=== PATIENT | male | born 1950 | race Caucasian/White ===

== ENCOUNTER → 2016-12-16 | Outpatient (CLI) | payer OTHER ==
[~2016-12-16] MED LIST: ASPI81TA28 PO; GABA-113 PO; HYDR25TA5 PO; LISI-725 PO; PANT1TAB48 PO; POTA20TA16 PO
[2016-12-16 12:56] LABS: BASO % 0.6 %; BASO ABS # 0.05 K/uL (0-0.2); COMPLETE YES; EOS % 2.4 %; IG% 0.1 %; LYMPH % 21.5 %; LYMPH ABS # 1.73 K/uL (1.2-3.4); MEAN CELL VOLUME 94.4 fL (80-100); MEAN CORPUSCULAR HEMOGLOBIN 33.2 pg (25-34); MEAN CORPUSCULAR HGB CONC 35.1 g/dl (32-36); MEAN PLATELET VOLUME 11.6 fL (7.4-10.4); MONO % 5.5 %; NEUT % 69.9 %; PLATELET COUNT 205 K/uL (130-400); RED BLOOD COUNT 4.13 M/uL (4.7-6.1); WHITE BLOOD COUNT 8.06 K/uL (4.8-10.8)
[2016-12-16 13:05] LABS: BLOOD UREA NITROGEN 12 mg/dl (7-18); BUN/CREATININE RATIO 12.6 (10-20); CALCIUM 8.8 mg/dl (8.5-10.1); CARBON DIOXIDE 28 mmol/L (21-32); CHLORIDE 105 mmol/L (98-107); CREATININE 0.91 mg/dl (0.60-1.40); GLUCOSE 90 mg/dl (70-99); POTASSIUM 3.6 mmol/L (3.5-5.1); SODIUM 140 mmol/L (136-145)
[2016-12-16 13:10] LABS: URINE APPEARANCE CLEAR (CLEAR); URINE BILIRUBIN NEG (NEG); URINE COLOR YELLOW; URINE EPITHELIAL CELL AUTO 0-5 /lpf (0-5); URINE NITRITE NEG (NEG); URINE SPECIFIC GRAVITY 1.002 (1.000-1.030); UROBILINOGEN NEG (NEG); ZZUR CULT IF INDIC CLEAN CATCH NO
[2016-12-16 13:10] LABS: PROSTATE SPECIFIC ANTIGEN 0.863 ng/ml (0.000-4.000)
[2016-12-16 13:31] LABS: MANUAL MICROSCOPIC REQUIRED? NO; REVIEW REQ? NO
== END | disposition home or self-care (01) ==
LOC: C.LABBFT 10:04
PROVIDERS: ATTEND Internal Medicine
DX: Z00.00 Encounter for general adult medical examination without abnormal findings (principal); I10 Essential (primary) hypertension; E87.6 Hypokalemia; R10.2 Pelvic and perineal pain; D72.829 Elevated white blood cell count, unspecified; R31.9 Hematuria, unspecified

== ENCOUNTER → 2017-03-01 | Outpatient (CLI) | payer OTHER | LOC: C.LAB 20:13 | DX: Z02.83 Encounter for blood-alcohol and blood-drug test (principal) ==

== ENCOUNTER 2019-06-08 13:40 | Inpatient (IN) ==
[2019-06-08] MEDS ORDERED: ASPIRIN CHEW 324 MG PO STA (14:06)
[2019-06-08] MEDS ORDERED: SODIUM CHLORIDE 0.9% 500 ML IV SCH (14:15)
[2019-06-08 14:31] LABS: Basophils # (auto) 0.02 K/uL (0-0.2); Basophils % (auto) 0.2 %; Hematocrit (blood only) 41.4 % (42-52); Hemoglobin 14.4 g/dL (14.0-18.0); Immature Granulocytes # (auto) 0.03 K/uL (0.00-0.02); Immature Granulocytes % (auto) 0.3 %; Lymphocytes # (auto) 1.21 K/uL (1.2-3.4); Lymphocytes % (auto) 11.6 %; Mean Corpuscular Hgb Conc 34.8 g/dL (32-36); Mean Corpuscular Volume 92.2 fL (80-100); Mean Platelet Volume 11.4 fL (7.4-10.4); Monocytes # (auto) 0.51 K/uL (0.11-0.59); Monocytes % (auto) 4.9 %; Neutrophils # (auto) 8.57 K/uL (1.4-6.5); Platelet Count 181 K/uL (130-400); RDW Coefficient of Variation 13.7 % (11.5-14.5); Red Blood Count 4.49 M/uL (4.7-6.1); White Blood Count 10.44 K/uL (4.8-10.8)
[2019-06-08 14:32] LABS: Albumin Level 3.9 gm/dl (3.4-5.0); BUN Creatinine Ratio 11.8 (10-20); Blood Urea Nitrogen 14 mg/dl (7-18); Calcium 9.3 mg/dl (8.5-10.1); Carbon Dioxide 29 mmol/L (21-32); Chloride 103 mmol/L (98-107); Creatinine Clr Calc Pharmacy 61.9 ml/min; Est GFR (African American) 70.9; Est GFR (Non-African American) 61.1; Glucose 111 mg/dl (70-99); Magnesium 1.8 mg/dl (1.8-2.4); Potassium 3.7 mmol/L (3.5-5.1); Sodium 137 mmol/L (136-145)
[2019-06-08 14:37] LABS: Alanine Aminotransferase 21 U/L (12-78); Albumin Globulin Ratio 1.1 (0.9-2); Alkaline Phosphatase 34 U/L (45-117); Aspartate Aminotransferase 13 U/L (15-37); Bilirubin,Total 0.6 mg/dl (0.2-1); Globulin 3.5 gm/dl (2.5-4.0); Total Protein 7.4 gm/dl (6.4-8.2); Troponin I < 0.015 ng/ml (0-0.045)
[2019-06-08 14:38] LABS: Partial Thromboplastin Ratio 0.9; Partial Thromboplastin Time 24.5 Seconds (21.0-31.0); Prothrombin Time 10.5 Seconds (9.0-12.0)
--- NOTE | 2019-06-08 15:06 | XRay Report ---
XR chest 1V portable HISTORY: Atypical Chest Pain COMPARISON: Chest 03/05/2019. FINDINGS: The lungs are clear. Cardiac silhouette is normal in size. No pleural effusions. No pneumot horax. IMPRESSION: No acute process. Electronically signed by: Deny Weaver M.D. 06/08/2019 3:04 PM
--- NOTE | 2019-06-08 15:14 | Emergency Department Note ---
Entered by Marlene Barney acting as a scribe for Juanito Sims MD History of Present Illness General Chief complaint: Chest Pain Stated complaint: CHEST PAIN, SWEATS, LEGS HURTING Time Seen by Provider: 06/08/19 13:59 Source: patient History of Present Illness Provider complaint: Chest pain Onset (ago): hour(s) Location: chest Pain Consistency: + constant Maximum Pain Intensity: 8 Quality: + constant Associated symptoms: + chest pain, + diaphoresis, + weakness (in both legs) and + other (Positive: left arm pain); no shortness of breath The patient is a 69 year old male who presents to the ED with complaints of constant chest pain that stared a few hours ago and lasted for 30 minutes. The patient reports he was mowing the grass and started having chest pain. He notes he was driving the mower and was not exerting himself. The patient reports he had diaphoresis and felt like he was going to vomit. He states both his legs were weak and he had pain in his left arm. The patient reports he does not have a history of heart disease but his family does. He states he is a smoker. The patient denies shortness of breath. Home Medications Home Medications Medication Instructions Recorded Confirmed Type aspirin 81 mg PO QAM 03/05/19 06/08/19 History gabapentin 300 mg capsule 300 mg PO HS #30 cap 05/27/19 06/08/19 Rx hydrochlorothiazide 25 mg tablet 25 mg PO DAILY #90 tab 05/30/19 06/08/19 Rx lisinopril 20 mg tablet 20 mg PO DAILY #90 tab 05/30/19 06/08/19 Rx pantoprazole 40 mg tablet,delayed 40 mg PO DAILY #90 tab 05/30/19 06/08/19 Rx release potassium chloride ER 20 mEq 20 meq PO DAILY #90 tab 05/30/19 06/08/19 Rx tablet,extended release Allergies Allergy/AdvReac Type Severity Reaction Status Date / Time No Known Allergies Allergy Verified 06/08/19 15:12 Past Med/Surg History Medical History Asthma (Chronic) GERD (gastroesophageal reflux disease) (Chronic) HTN (hypertension) (Chronic) Family History Brother Myocardial infarction Other Heart disease Social History Preferred Language: Peruvian Communication Ability: Effective Beliefs That Will Affect Care: None Current Living Situation: Alone Other Information That Helps Us Care for You: No Feels Safe at Home: Yes Safety Concerns: Feels Safe At This Time Smoking Status: Current every day smoker Tobacco Type: cigarettes Cigarettes Per Day: 20 Hx Alcohol Use: No Hx Substance Use: No Review of Systems See HPI for pertinent positives & negatives. and A total of 10 systems reviewed and were otherwise negative Physical Exam Vital Signs Vital Signs - 24 hr 06/08/19 13:44 06/08/19 13:52 06/08/19 13:54 Temperature 36.3 C L Temperature Source Oral Sepsis Recent Fever Within 48 Hours No Sepsis New/Unexplained Change in Mental Status No Sepsis Action Taken by Nursing No Action Required Pulse Rate 87 73 72 Pulse Rate [Apical] Pulse Rate from SpO2 Sensor 73 74 Respiratory Rate 20 20 19 Respiratory Effort / Characteristics Non-Labored Spontaneous Blood Pressure 122/80 117/75 Blood Pressure [Left Arm] Blood Pressure Mean 94 89 Blood Pressure Mean [Left Arm] Blood Pressure Position Sitting Pulse Oximetry 97 97 95 Oxygen Delivery Method Room Air 06/08/19 14:00 06/08/19 14:09 06/08/19 14:10 Temperature Temperature Source Sepsis Recent Fever Within 48 Hours Sepsis New/Unexplained Change in Mental Status Sepsis Action Taken by Nursing Pulse Rate 72 79 Pulse Rate [Apical] Pulse Rate from SpO2 Sensor 77 Respiratory Rate 18 24 Respiratory Effort / Characteristics Blood Pressure Blood Pressure [Left Arm] Blood Pressure Mean Blood Pressure Mean [Left Arm] Blood Pressure Position Pulse Oximetry 96 97 Oxygen Delivery Method 06/08/19 14:14 06/08/19 14:15 06/08/19 14:20 Temperature Temperature Source Sepsis Recent Fever Within 48 Hours Sepsis New/Unexplained Change in Mental Status Sepsis Action Taken by Nursing Pulse Rate 74 81 Pulse Rate [Apical] 78 Pulse Rate from SpO2 Sensor 75 79 Respiratory Rate 16 18 23 Respiratory Effort / Characteristics Blood Pressure 125/81 Blood Pressure [Left Arm] 125/81 Blood Pressure Mean 95 Blood Pressure Mean [Left Arm] 95 Blood Pressure Position Pulse Oximetry 98 97 97 Oxygen Delivery Method Room Air 06/08/19 14:30 06/08/19 14:40 06/08/19 14:50 Temperature Temperature Source Sepsis Recent Fever Within 48 Hours Sepsis New/Unexplained Change in Mental Status Sepsis Action Taken by Nursing Pulse Rate 73 72 67 Pulse Rate [Apical] Pulse Rate from SpO2 Sensor 75 71 68 Respiratory Rate 20 17 18 Respiratory Effort / Characteristics Blood Pressure 129/79 Blood Pressure [Left Arm] Blood Pressure Mean 95 Blood Pressure Mean [Left Arm] Blood Pressure Position Pulse Oximetry 98 98 95 Oxygen Delivery Method 06/08/19 15:00 06/08/19 15:10 06/08/19 15:20 Temperature Temperature Source Sepsis Recent Fever Within 48 Hours Sepsis New/Unexplained Change in Mental Status Sepsis Action Taken by Nursing Pulse Rate 69 71 73 Pulse Rate [Apical] 71 Pulse Rate from SpO2 Sensor 69 71 77 Respiratory Rate 24 21 18 Respiratory Effort / Characteristics Blood Pressure 146/83 H Blood Pressure [Left Arm] 146/83 H Blood Pressure Mean 104 Blood Pressure Mean [Left Arm] 104 Blood Pressure Position Pulse Oximetry 99 97 99 Oxygen Delivery Method Room Air 06/08/19 15:28 06/08/19 15:30 06/08/19 15:40 Temperature Temperature Source Sepsis Recent Fever Within 48 Hours Sepsis New/Unexplained Change in Mental Status Sepsis Action Taken by Nursing Pulse Rate 67 64 Pulse Rate [Apical] Pulse Rate from SpO2 Sensor 68 Respiratory Rate 14 14 Respiratory Effort / Characteristics Blood Pressure 139/84 Blood Pressure [Left Arm] Blood Pressure Mean 102 Blood Pressure Mean [Left Arm] Blood Pressure Position Pulse Oximetry 99 Oxygen Delivery Method Room Air 06/08/19 15:50 06/08/19 16:00 06/08/19 16:10 Temperature Temperature Source Sepsis Recent Fever Within 48 Hours Sepsis New/Unexplained Change in Mental Status Sepsis Action Taken by Nursing Pulse Rate 64 66 70 Pulse Rate [Apical] Pulse Rate from SpO2 Sensor Respiratory Rate 13 19 23 Respiratory Effort / Characteristics Blood Pressure 145/86 H Blood Pressure [Left Arm] Blood Pressure Mean 105 Blood Pressure Mean [Left Arm] Blood Pressure Position Pulse Oximetry Oxygen Delivery Method 06/08/19 16:20 06/08/19 16:30 Temperature Temperature Source Sepsis Recent Fever Within 48 Hours Sepsis New/Unexplained Change in Mental Status Sepsis Action Taken by Nursing Pulse Rate 72 68 Pulse Rate [Apical] Pulse Rate from SpO2 Sensor Respiratory Rate 15 15 Respiratory Effort / Characteristics Blood Pressure 129/90 Blood Pressure [Left Arm] Blood Pressure Mean 103 Blood Pressure Mean [Left Arm] Blood Pressure Position Pulse Oximetry Oxygen Delivery Method GENERAL: Patient is in no acute distress. HEENT: No acute trauma, normocephalic atraumatic, mucous membranes moist, no nasal congestion, no scleral icterus. Chest: Nontender chest wall NECK: No stridor, no adenopathy, no meningismus, trachea is midline. LUNGS: Clear to auscultation bilaterally, no wheeze, no rhonchi, breath sounds equal. HEART: Without murmurs gallops or rubs, regular rate and rhythm. ABDOMEN: Soft, nontender, bowel sounds positive, no hernias, no peritonitis. EXTREMITIES: No cyanosis or edema, full range of motion of all the joints without pain or difficulty, no signs for acute trauma. NEUROLOGIC: Oriented x 3, no acute motor or sensory deficits, no focal weakness. SKIN: No rash, no jaundice, no diaphoresis. Course 1400: The patient was evaluated in room B3B. A complete history and physical exam was performed. 1458: I discussed the patient's case with Dr. Fernandez, [facility] Hospitalist. He will evaluate the patient for further management. 1503: Upon reevaluation, the patient is resting comfortably. I discussed laboratory and radiographic results with him. The patient verbalized agreement of the treatment plan. The patient will be evaluated for further management and care. Administered Medications Discontinued Medications Aspirin (Aspirin) 324 mg PO NOW STA Stop: 06/08/19 14:07 Last Admin: 06/08/19 14:12 Dose: 324 mg Documented by: [id number] Sodium Chloride (Nss) 500 mls @ 999 mls/hr IV .Q31M JESSE Stop: 06/08/19 14:45 Last Infusion: 06/08/19 14:55 Dose: 0 mls/hr Documented by: [id number] Admin: 06/08/19 14:12 Dose: 999 mls/hr Documented by: [id number] Medical Decision Making Differential Diagnosis Differential Diagnosis: LA, angina, musculoskeletal pain, PE, aortic dissection, anemia pneumonia, near syncope Medical Records Attestation: I reviewed the patient's medical records. Home Medications Current Medication List: was personally reviewed by me Laboratory Data Attestation: I reviewed the patient's lab results. Result diagrams: 06/08/19 14:03 06/08/19 14:03 Lab Results 06/08/19 06/08/19 06/08/19 Range/Units 14:03 14:03 14:03 WBC 10.44 (4.8-10.8) K/uL RBC 4.49 L (4.7-6.1) M/uL Hgb 14.4 (14.0-18.0) g/dL Hct 41.4 L (42-52) % MCV 92.2 (80-100) fL MCH 32.1 (25-34) pg MCHC 34.8 (32-36) g/dL RDW Std Deviation 46.0 (36.4-46.3) fL RDW Coeff of Sancho 13.7 (11.5-14.5) % Plt Count 181 (130-400) K/uL MPV 11.4 H (7.4-10.4) fL Immature Gran % (Auto) 0.3 % Neut % (Auto) 82.0 % Lymph % (Auto) 11.6 % Ceiba % (Auto) 4.9 % Eos % (Auto) 1.0 % Baso % (Auto) 0.2 % Immature Gran # (Auto) 0.03 H (0.00-0.02) K/uL Neut # (Auto) 8.57 H (1.4-6.5) K/uL Lymph # (Auto) 1.21 (1.2-3.4) K/uL Ceiba # (Auto) 0.51 (0.11-0.59) K/uL Eos # (Auto) 0.10 (0-0.5) K/uL Baso # (Auto) 0.02 (0-0.2) K/uL PT 10.5 (9.0-12.0) Seconds INR 1.0 (0.9-1.1) APTT 24.5 (21.0-31.0) Seconds PTT Ratio 0.9 Sodium 137 (136-145) mmol/L Potassium 3.7 (3.5-5.1) mmol/L Chloride 103 (98-107) mmol/L Carbon Dioxide 29 (21-32) mmol/L Anion Gap 5.0 (3-11) BUN 14 (7-18) mg/dl Creatinine 1.21 (0.6-1.4) mg/dl Est Cr Clr Drug Dosing 61.9 ml/min Est GFR ( Amer) 70.9 Est GFR (Non-Af Amer) 61.1 BUN/Creatinine Ratio 11.8 (10-20) Glucose 111 H (70-99) mg/dl Calcium 9.3 (8.5-10.1) mg/dl Magnesium 1.8 (1.8-2.4) mg/dl Total Bilirubin 0.6 (0.2-1) mg/dl AST 13 L (15-37) U/L ALT 21 (12-78) U/L Alkaline Phosphatase 34 L (45-117) U/L Troponin I < 0.015 (0-0.045) ng/ml Total Protein 7.4 (6.4-8.2) gm/dl Albumin 3.9 (3.4-5.0) gm/dl Globulin 3.5 (2.5-4.0) gm/dl Albumin/Globulin Ratio 1.1 (0.9-2) Lipase 144 (73-393) U/L / Range/Units 14:03 WBC (4.8-10.8) K/uL RBC (4.7-6.1) M/uL Hgb (14.0-18.0) g/dL Hct (42-52) % MCV (80-100) fL MCH (25-34) pg MCHC (32-36) g/dL RDW Std Deviation (36.4-46.3) fL RDW Coeff of Sancho (11.5-14.5) % Plt Count (130-400) K/uL MPV (7.4-10.4) fL Immature Gran % (Auto) % Neut % (Auto) % Lymph % (Auto) % Ceiba % (Auto) % Eos % (Auto) % Baso % (Auto) % Immature Gran # (Auto) (0.00-0.02) K/uL Neut # (Auto) (1.4-6.5) K/uL Lymph # (Auto) (1.2-3.4) K/uL Ceiba # (Auto) (0.11-0.59) K/uL Eos # (Auto) (0-0.5) K/uL Baso # (Auto) (0-0.2) K/uL PT (9.0-12.0) Seconds INR (0.9-1.1) APTT (21.0-31.0) Seconds PTT Ratio Sodium (136-145) mmol/L Potassium (3.5-5.1) mmol/L Chloride (98-107) mmol/L Carbon Dioxide (21-32) mmol/L Anion Gap (3-11) BUN (7-18) mg/dl Creatinine (0.6-1.4) mg/dl Est Cr Clr Drug Dosing ml/min Est GFR ( Amer) Est GFR (Non-Af Amer) BUN/Creatinine Ratio (10-20) Glucose (70-99) mg/dl Calcium (8.5-10.1) mg/dl Magnesium Cancelled (1.8-2.4) mg/dl Total Bilirubin (0.2-1) mg/dl AST (15-37) U/L ALT (12-78) U/L Alkaline Phosphatase (45-117) U/L Troponin I (0-0.045) ng/ml Total Protein (6.4-8.2) gm/dl Albumin (3.4-5.0) gm/dl Globulin (2.5-4.0) gm/dl Albumin/Globulin Ratio (0.9-2) Lipase (73-393) U/L Imaging Data Radiologist's Impression: Radiology results as stated below per my review and the radiologist's interpretation: XR chest 1V portable HISTORY: Atypical Chest Pain COMPARISON: Chest 03/05/2019. FINDINGS: The lungs are clear. Cardiac silhouette is normal in size. No pleural effusions. No pneumothorax. IMPRESSION: No acute process. Electronically signed by: Deny Weaver M.D. 06/08/2019 3:04 PM ECG Data Attestation: I personally reviewed and interpreted this ECG as follows: Indication: chest pain Rate (beats per minute): 72 Rhythm: normal sinus Findings: no PVC and no ST elevation Blood Pressure Blood Pressure Findings: Normal blood pressure Blood Pressure Disposition: did not require urgent referral MDM Narrative There is no leukocytosis or concerning anemia. No coagulopathy. No significant electrolyte abnormality or kidney failure. No concerning liver enzyme elevation. The lipase is normal. EKG shows a normal sinus rhythm, no acute ischemia. Cardiac enzyme testing x1 is not consistent with acute cardiac injury. Chest film does not show mediastinal widening, pneumonia or pneumothorax. The patient was given oral aspirin, he received IV saline. Patient presents with chest pain which has now resolved. He does have cardiac risk factors. I do think further work-up in the hospital is warranted. I did speak to the patient and case management. The on-call hospitalist was consulted. Impression & Plan Precordial chest pain, Near syncope, Diaphoresis Discharge Plan Visit Data *Final* Discharge Date/Time: 06/08/19 17:08 Chief Complaint: Chest Pain Stated Complaint: CHEST PAIN, SWEATS, LEGS HURTING ED Provider: Juanito Sims Discharge Problem: Precordial chest pain, Near syncope, Diaphoresis Patient Disposition: Admitted As Inpatient Discharge Instructions Interventions: ED Discharge Assessment Last Done: 06/08/19 17:08 The scribe's documentation has been prepared under my direction and personally reviewed by me in its entirety. I confirm that the note above accurately reflects all work, treatment, procedures, and medical decision making performed by me.
--- NOTE | 2019-06-08 17:49 | History & Physical Report ---
Date of Service June 08, 2019 Assessment & Plan (1) Precordial chest pain: Fairly convincing story for chest pain, though initial troponin and EKGs are normal. Heart score is 4 (story, age, risk factors), making him moderate risk. 12-14% risk of MACE in 30 days. Patient prefers to stay for inpatient stress test. - Trend troponins & EKGs - Stress planned for Monday (2) HTN (hypertension): BP presently 130/80. - Continue home meds (3) GERD (gastroesophageal reflux disease): - Continue PPI. (4) DVT prophylaxis: SCDs - Low DVT risk per admission calculator History of Present Illness Primary Care Provider: Hailey Miranda MD 69-year-old male with history of hypertension and smoking who presents with chest pain. Patient reports that he was mowing his lawn today, got of his lawnmower, went to the house, drank a cup of water, and return to the warmer when he had a sudden onset squeezing chest pain across his shoulders. He denies any radiation to his left or right arm or jaw. Reports he he felt diaphoretic, lightheaded, and mildly nauseated with the pain. The pain self resolved after a few minutes. He reports that this occurred back in February with a very similar presentation. At that time he was ruled out for an acute LA, but never followed up with his primary care doctor to get a stress test. At this time he is chest pain-free. Allergies Allergy/AdvReac Type Severity Reaction Status Date / Time No Known Allergies Allergy Verified 06/08/19 15:12 Home Medications Home Medications Medication Instructions Recorded Confirmed Type aspirin 81 mg PO QAM 03/05/19 06/08/19 History gabapentin 300 mg capsule 300 mg PO HS #30 cap 05/27/19 06/08/19 Rx hydrochlorothiazide 25 mg tablet 25 mg PO DAILY #90 tab 05/30/19 06/08/19 Rx lisinopril 20 mg tablet 20 mg PO DAILY #90 tab 05/30/19 06/08/19 Rx pantoprazole 40 mg tablet,delayed 40 mg PO DAILY #90 tab 05/30/19 06/08/19 Rx release potassium chloride ER 20 mEq 20 meq PO DAILY #90 tab 05/30/19 06/08/19 Rx tablet,extended release Past Med/Surg History Medical History Asthma (Chronic) GERD (gastroesophageal reflux disease) (Chronic) HTN (hypertension) (Chronic) Family History Brother Myocardial infarction Other Heart disease Social History Preferred Language: Trinidadian Communication Ability: Effective Beliefs That Will Affect Care: None Current Living Situation: Alone Other Information That Helps Us Care for You: No Feels Safe at Home: Yes Safety Concerns: Feels Safe At This Time Smoking Status: Current every day smoker Tobacco Type: cigarettes Cigarettes Per Day: 20 Hx Alcohol Use: No Hx Substance Use: No Review of Systems Constitutional: no fever, no chills and no sweats Eyes: no diplopia Ear, Nose, Mouth, Throat: no ear trauma, no nasal discharge and no dental pain Respiratory: no cough, no chest congestion and no dyspnea Cardiovascular: no chest pain, no dyspnea on exertion, no palpitations and no syncope Gastrointestinal: no abdominal pain, no belching, no constipation, no diarrhea/loose stools, no blood in stools and no melena Musculoskeletal: no back pain, no joint pain and no muscle weakness Integumentary: no rash, no skin ulcer and no erythema Neurologic: no generalized weakness, no loss of sensation, no numbness and no paresthesia Psychiatric: no depression and no anxiety Endocrine: no fatigue, no polydipsia and no polyphagia Physical Exam Constitutional: WD/WN, vitals as above Eyes: EOM intact bilaterally; no conjunctival abnormality ENMT: external ear and nose normal, oropharynx normal Neck: trachea midline, no thyromegaly normal visual inspection Respiratory: normal respiratory effort, lungs clear to auscultation no respiratory distress Cardiovascular: RRR, no murmur, no edema Gastrointestinal (Abdomen): Inspection/Auscultation: abdomen normal to inspection; abdomen not distended Musculoskeletal: no cyanosis or clubbing, extremities motor strength 5/5 Skin: no rashes, warm and dry Neurologic: moves all extremities and awake Psychiatric: Orientation: alert, oriented to person and cooperative Results & Data Vital Signs (Past 12 Hours) Vital Signs Temp Pulse Pulse Resp BP BP Pulse Ox 06/08/19 17:08 68 18 129/77 94 06/08/19 16:30 68 15 129/90 06/08/19 16:20 72 15 06/08/19 16:10 70 23 06/08/19 16:00 66 19 145/86 H 06/08/19 15:50 64 13 06/08/19 15:40 64 14 06/08/19 15:30 67 14 139/84 99 06/08/19 15:20 73 18 99 06/08/19 15:10 71 21 97 06/08/19 15:00 69 71 24 146/83 H 146/83 H 99 06/08/19 14:50 67 18 95 06/08/19 14:40 72 17 98 06/08/19 14:30 73 20 129/79 98 06/08/19 14:20 81 23 97 06/08/19 14:15 78 18 125/81 97 06/08/19 14:14 74 16 125/81 98 06/08/19 14:10 79 24 97 06/08/19 14:09 96 06/08/19 14:00 72 18 06/08/19 13:54 72 19 95 06/08/19 13:52 73 20 117/75 97 06/08/19 13:44 36.3 C L 87 20 122/80 97 PG Care Time/CCT Total # of Minutes Spent Total Time Spent with Patient: Total time spent is greater than 50% in coordination of care (as documented) at patient's floor/unit and/or counseling patient:
[2019-06-08] MEDS ORDERED: ACETAMINOPHEN 325 MG TAB PO PRN (17:57)
[2019-06-08] MEDS ORDERED: GABAPENTIN 300 MG CAP PO ONE (19:00)
[2019-06-08] MEDS: NICOTINE 21 MG/24 HR TDSY TD SCH (19:39)
[2019-06-08] MEDS ORDERED: GABAPENTIN 300 MG CAP PO SCH (21:00)
[2019-06-09 07:44] LABS: Hemoglobin 14.3 g/dL (14.0-18.0); Mean Corpuscular Hgb Conc 34.9 g/dL (32-36); Mean Corpuscular Volume 92.8 fL (80-100); Mean Platelet Volume 11.6 fL (7.4-10.4); Platelet Count 177 K/uL (130-400); RDW Coefficient of Variation 13.6 % (11.5-14.5); RDW Standard Deviation 46.4 fL (36.4-46.3); Red Blood Count 4.42 M/uL (4.7-6.1); White Blood Count 7.79 K/uL (4.8-10.8)
[2019-06-09] MEDS: NICOTINE 21 MG/24 HR TDSY TD SCH (07:56)
[2019-06-09] MEDS: PANTOprazole 40 MG TAB PO SCH (07:57)
[2019-06-09] MEDS: hydroCHLOROthiazide 25 MG TAB PO SCH (07:57)
[2019-06-09] MEDS: LISINOPRIL 20 MG TAB PO SCH (07:57)
[2019-06-09] MEDS: ASPIRIN 81 MG ECTAB PO SCH (07:57)
[2019-06-09] MEDS: POTASSIUM CHLORIDE 20 MEQ TABCR PO SCH (07:58)
[2019-06-09 08:19] LABS: BUN Creatinine Ratio 14.6 (10-20); Blood Urea Nitrogen 15 mg/dl (7-18); Carbon Dioxide 28 mmol/L (21-32); Chloride 106 mmol/L (98-107); Creatinine Clr Calc Pharmacy 72.2 ml/min; Est GFR (African American) 88.2; Est GFR (Non-African American) 76.1; Glucose 97 mg/dl (70-99); Potassium 3.5 mmol/L (3.5-5.1); Sodium 139 mmol/L (136-145)
[2019-06-09 08:24] LABS: Troponin I < 0.015 ng/ml (0-0.045)
--- NOTE | 2019-06-09 16:07 | Hospitalist Progress Note ---
Date of Service June 09, 2019 Assessment & Plan (1) Precordial chest pain: Fairly convincing story for chest pain, though troponins and EKGs were negative. Heart score is 4 (story, age, risk factors), making him moderate risk. 12-14% risk of MACE in 30 days. Patient prefers to stay for inpatient stress test. - Stress echo planned for Monday (2) HTN (hypertension): BP presently 130/80. - Continue home meds (3) GERD (gastroesophageal reflux disease): - Continue PPI. (4) DVT prophylaxis: SCDs - Low DVT risk per admission calculator Subjective No chest pain overnight or today. Feels well. Review of Systems Review of Systems: All systems reviewed & are unremarkable except as noted in HPI & below Physical Exam Constitutional: WD/WN, vitals as above Eyes: EOM intact bilaterally; no conjunctival abnormality ENMT: external ear and nose normal, oropharynx normal Neck: trachea midline, no thyromegaly normal visual inspection Respiratory: normal respiratory effort, lungs clear to auscultation no respiratory distress Cardiovascular: RRR, no murmur, no edema Gastrointestinal (Abdomen): Inspection/Auscultation: abdomen normal to inspection; abdomen not distended Musculoskeletal: no cyanosis or clubbing, extremities motor strength 5/5 Skin: no rashes, warm and dry Neurologic: moves all extremities and awake Psychiatric: Orientation: alert, oriented to person and cooperative Results & Data Vital Signs (Past 12 Hours) Vital Signs Temp Pulse Pulse Resp BP Pulse Ox 06/09/19 15:24 36.7 C 75 18 121/76 97 06/09/19 11:15 36.9 C 63 18 124/66 95 06/09/19 08:00 70 06/09/19 07:37 36.7 C 71 18 125/80 97 PG Care Time/CCT Total # of Minutes Spent Total Time Spent with Patient: Total time spent is greater than 50% in coordination of care (as documented) at patient's floor/unit and/or counseling patient:
[2019-06-09] MEDS ORDERED: GABAPENTIN 300 MG CAP PO SCH (21:00)
[2019-06-10] MEDS: POTASSIUM CHLORIDE 20 MEQ TABCR PO SCH (09:49)
[2019-06-10] MEDS: ASPIRIN 81 MG ECTAB PO SCH (09:49)
[2019-06-10] MEDS: hydroCHLOROthiazide 25 MG TAB PO SCH (09:49)
[2019-06-10] MEDS: NICOTINE 21 MG/24 HR TDSY TD SCH (09:50)
[2019-06-10] MEDS: LISINOPRIL 20 MG TAB PO SCH (09:50)
[2019-06-10] MEDS: PANTOprazole 40 MG TAB PO SCH (09:50)
--- NOTE | 2019-06-10 15:03 | Discharge Summary ---
Date of Service June 10, 2019 Admission HPI Per Admitting Provider 69-year-old male with history of hypertension and smoking who presents with chest pain. Patient reports that he was mowing his lawn today, got of his lawnmower, went to the house, drank a cup of water, and return to the warmer when he had a sudden onset squeezing chest pain across his shoulders. He denies any radiation to his left or right arm or jaw. Reports he he felt diaphoretic, lightheaded, and mildly nauseated with the pain. The pain self resolved after a few minutes. He reports that this occurred back in February with a very similar presentation. At that time he was ruled out for an acute CO, but never followed up with his primary care doctor to get a stress test. At this time he is chest pain-free. Principal Diagnosis Chest pain-noncardiac Discharge Exam Constitutional WD/WN, vitals as above Eyes PERRL, conjunctivae normal, anicteric sclerae ENMT external ear and nose normal, oropharynx normal Neck trachea midline, no thyromegaly Respiratory normal respiratory effort, lungs clear to auscultation Cardiovascular RRR, no murmur, no edema Gastrointestinal (Abdomen) normal bowel sounds, soft, nontender, no hepatosplenomegaly Musculoskeletal Extremities: extremities normal to inspection; no cyanosis and no clubbing Skin no rashes, warm and dry Neurologic moves all extremities and awake; no focal motor deficits Psychiatric A+Ox3, euthymic affect Discharge Data Allergies Allergy/AdvReac Type Severity Reaction Status Date / Time No Known Allergies Allergy Verified 06/08/19 15:12 Consultations None Procedures Performed Exercise stress echocardiogram-no inducible ischemia Ordered Studies Chest x-ray Hospital Course (1) Precordial chest pain: Had an episode of 30 minutes of chest burning located in substernal region without radiation. It was associated with diaphoresis, mild lightheadedness and mild nausea. His symptoms all resolved on their own after 30 minutes. This all came on after drinking a very large cold glass of water. He was not exerting himself at the time-he was sitting on his riding lawnmower line he had serially negative troponins here, a normal stress echocardiogram, and no significant events on telemetry monitoring. His chest x-ray was negative. He had no recurrence of his chest pain while he was here. This could be GI related as he does have a history of acid reflux and this came on with drinking cold glass of water. Perhaps he had esophageal spasm. Of note, he had a similar episode in February when he was lying flat working on a vehicle. Again, that could have been GI related as he was lying flat and likely had reflux causing esophageal spasm. -Increase Protonix to 40 mg p.o. twice daily x2 weeks and then return to once daily dosing Highly encouraged him to quit smoking and to use nicotine replacement therapy as tolerated for this. He is agreeable to doing so. He will follow-up with his PCP within 1 week after discharge. (2) HTN (hypertension): Blood pressures controlled - Continue home meds of lisinopril and HCTZ (3) GERD (gastroesophageal reflux disease): - Continue PPI and increase to twice daily for 2 weeks as above Encourage smoking cessation (4) DVT prophylaxis: SCDs - Low DVT risk per admission calculator-no chemical means was provided Disposition-he is stable for discharge to home Total Time Total Time Spent Total Time Spent (In Minutes): Greater than 30 minutes Total Time Includes: Examination of the Patient, Discharge Planning and Medication Reconciliation Discharge Plan Discharge Items Patient Disposition: Home - Self-Care Reason For Visit: CHEST PAIN Discharge Diagnosis: Chest pain-noncardiac Condition: Good Discharge Goals: Decrease discomfort, Diagnostic testing, Improve disease control, Learn about illness and Therapeutic intervention Activity: Resume your previous activity Bathing: No limitations Driving/Machine Use: No limitations Non-emergency contact: Primary Care Provider Call non-emergency contact if: you have any medication questions, your symptoms worsen, your pain is not controlled, your pain is worsening, your pain is unusual for you and your pain is concerning for you Follow-up/Referrals: Hailey Miranda MD [Primary Care Provider] - 06/14/19 9:00 am (Please, follow up at Dr. Miranda's office with her pizza hut assistant, Alexia Zapien PA-C, on MondayJune 14 at 9:00 am. *If you need to change this appointment, call the office at [phone].) Diet: Heart Healthy [facility] Provider Instructions: You were admitted for chest pain and had testing of the heart which showed you did not have a heart attack. You had a stress test which shows no abnormalities at all. It is possible that this pain is related to acid reflux. You should increase your pantoprazole to twice daily for the next 2 weeks and see if this improves her symptoms. Please follow-up with your primary care physician as scheduled for you. It is very important that you immediately quit smoking-this is the best thing you can do for your health at this time. Prescriptions: Continued gabapentin 300 mg capsule 300 mg PO HS Qty: 30 RF: 5 hydrochlorothiazide 25 mg tablet 25 mg PO DAILY Qty: 90 RF: 1 lisinopril 20 mg tablet 20 mg PO DAILY Qty: 90 RF: 1 potassium chloride 20 mEq tablet extended release 20 meq PO DAILY Qty: 90 RF: 1 aspirin 81 mg Tablet,Delayed Release (Dr/Ec) 81 mg PO QAM RF: 0 Changed pantoprazole 40 mg tablet,delayed release (DR/EC) 40 mg PO BID Qty: 60 RF: 0 Stand-Alone Forms: Call Back Authorization, [facility] Discharge Orders: Discharge Order (Routine); Ordered 06/10/19 Ordered By: Odalys Mariscal Admission Data Admit Date/Time: 06/08/19 16:32 Attending Provider: Odalys Mariscal Admit Provider: Juve Fernandez Primary Care Provider: aHiley Miranda Service: Telemetry Medical Other Pending Studies at Discharge: No
== END 2019-06-10 16:05 | disposition home or self-care (01) | DRG 392 ==
LOC: ED 13:40 → SUATTDRO 16:32 → 2N 16:32
DX: K21.9 Gastro-esophageal reflux disease without esophagitis; J45.909 Unspecified asthma, uncomplicated; Z79.82 Long term (current) use of aspirin; F17.210 Nicotine dependence, cigarettes, uncomplicated; R55 Syncope and collapse; Z82.49 Family history of ischemic heart disease and other diseases of the circulatory system; K22.4 Dyskinesia of esophagus; I10 Essential (primary) hypertension

== ENCOUNTER 2020-08-29 03:55 | Observation (INO) ==
[2020-08-29] MEDS ORDERED: HYDROmorphone INJ 1 MG/ML SYRINGE IV STA (04:06)
[2020-08-29] MEDS ORDERED: ONDANSETRON INJ 2 MG/ML 2 ML VIAL IV STA (04:06)
[2020-08-29] MEDS ORDERED: SODIUM CHLORIDE 0.9% 1000ML 1,000 ML IV ONE (04:06)
--- NOTE | 2020-08-29 04:10 | Emergency Department Note ---
Impression & Plan Acute cholecystitis ED Provider Note Name: COOKIE BERNARD Age: 70 Sex: M Arrives Via: Ambulance Informant: Patient ED Provider: Moody Mesa MD Chief Complaint: Epigastric pain Impression: Acute Cholecystitis Medical Decision Makin yr old male smoker with history HTN, GERD, and Restless legs arrives for evaluation sudden onset epigastric pain. Quite TTP on exam though no abdominal TTP otherwise and no pulsatile masses. EKG unremarkable thus with normal trop ACS unlikely. Labs without significant findings. Pain controlled with IV dilaudid and nausea with IV zofran. Given some IV fluids as appears a bit on dry side. CT obtained which reveals concern for acute cholecystitis without biliary duct dilatation. Patient with some continued epigastric discomfort though declines further pain meds. Gen Surg consulted for evaluation of jacek vang. Prior Medical Record and Triage/Nursing Notes reviewed by Me Differentials:Cholecystitis, Pancreatitis, Aortic Dissection, ACS, Diverticulitis, PUD, Mesenteric Ischemia, Biliary occlusion, thrombosis amongst other pathologies. Vital Signs: reviewed and remarkable for HTN Interventions: Saline lock, zofran 4mg IV, dilaudid 1 mg IV, nss bolus 1L IV Labs:Reviewed and remarkable for no significant abnormalities Imaging:[facility] Radiologist interpretation reviewed by me: "CT ABDOMEN & PELVIS With Contrast: Comparison to September 09, 2011 There is a layer of sludge and/or stone in the dependent portion of the distended but nondilated gallbladder with slight surrounding inflammation suggesting acute cholecystitis. No biliary duct dilation is seen. Right adrenal mass measuring 3.4 cm, increased in size compared to 2.6 cm in 2011. The liver, pancreas, spleen, and kidneys are unremarkable. The abdominal aorta is heavily calcified but nondilated measuring 2.5 cm. The appendix is normal. Bowel loops are nondilated. There is diverticulosis of the sigmoid colon. No acute inflammatory changes are seen involving the bowel. Radiologist: Anthony Cardenas MD" EKG:Per My Interpretation: Indication Epigastric Pain: NSR 55 bpm, qtc 419. No Ectopy. No Ischemia. Compared to EKG 06/09/19, no significant changes. Cardiac/Tele Monitoring: Cardiac Monitoring: An Order was placed for continuous cardiac monitoring. The monitor shows a rate of 60 with a normal sinus rhythm. Consults:Claudy Ahumada PA-C of [place] [facility] to eval further Plan: Disposition:Taken to OR. Condition: Good Prescriptions:none PDMP: n/a History of Present Illness:70 yr old male with history of HTN, GERD arrives for evaluation of epigastric pain. Sudden onset epigastric pain several hours earlier. Associated nausea, vomiting and diarrhea. No radiation of pain. No medications taken for this. Nothing makes better nor worse. No inciting event. No trauma, injuries, falls. No sick contacts. No previous abdominal issues other than GERD. Denies history gallbladder problems. No chest pain, sob, syncope, cough, fevers, headache, neck pain, back pain, urinary symptoms, leg swelling, rashes, nor other symptoms. ROS: See above HPI for pertinent positives & negatives. A total of 10 systems reviewed and were otherwise negative. Past Medical History:HTN, Gerd, Restless legs Past Surgical History:none Family History:Mother Alzheimers, Father Cancer Social History:Lives alone, unmarried, smokes, no etoh, no drugs Home Medications:ASA 81mg Daily, Gabapentin, lisinopril, protonix Allergies:NKDA Vitals:Blood Pressure: 172/86, Pulse 52, RR 16, T 36.4C, O2 96% on RA Physical Exam: GENERAL: Patient is very uncomfortable appearing and in moderate distress. EYES: No scleral icterus, unremarkable pupils. ENT: Mucous membranes moist, no nasal congestion. NECK: No masses appreciated, nomeningismus, trachea is midline. RESPIRATORY: No dyspnea. Clear to auscultation and equal bilaterally. No wheeze, no rhonchi. CARDIOVASCULAR: Regular rate and rhythm.No murmurs, rubs, gallops appreciated. GASTROINTESTINAL: Epigastric and RUQ TTP, otherwise abdomen soft, non-tender, no peritonitis.Bowel sounds positive.No masses appreciated. BACK: No midline tenderness, no CVA tenderness EXTREMITIES: Normal motion all extremities, no cyanosis, no edema. NEUROLOGIC: Alert and oriented, no acute motor or sensory deficits, no focal weakness, cranial nerves grossly intact. SKIN: No rash, no jaundice, no diaphoresis. PSYCH: Appropriate GCS: 15 ED Course: Times/Reassessments: Vastly improved with pain meds, still some TTP epigastrium though much improved. Moody Mesa MD Past Med/Surg History Medical History GERD (gastroesophageal reflux disease) HTN (hypertension) Restless leg syndrome Surgical History History of tooth extraction all teeth--under local anesthesia Family History Brother Myocardial infarction Mother Hypertension Other Heart disease No family history of adverse response to anesthesia Social History Smoking Status: Current every day smoker Cigarettes Per Day: 20 a day; Second Hand Exposure: Yes (parents smoked); Hx Alcohol Use: No (quit 1 1/2yrs ago) Hx Substance Use: No Preferred Language: Tam[place] Communication Ability: Effective Latin American Studies Professor Required: No Beliefs That Will Affect Care: None Current Living Situation: Alone Feels Safe at Home: Yes Assistive Devices: Denture - Upper, Denture - Lower and Glasses Allergies Allergies Allergy/AdvReac Type Severity Reaction Status Date / Time No Known Allergies Allergy Verified 08/29/20 04:42 Home Meds Home Medications Medication Instructions Recorded Confirmed aspirin 81 mg PO QAM 03/05/19 08/29/20 pantoprazole 40 mg PO BID 08/29/20 08/29/20 Previous Rx's Medication Instructions Recorded gabapentin 400 mg capsule 400 mg PO HS #90 cap 12/10/19 lisinopril 20 mg tablet 20 mg PO DAILY #90 tab 12/10/19 Results & Data (ED) Vital Signs Vital Signs - 24 hr 08/29/20 04:00 08/29/20 04:01 08/29/20 04:28 Temperature 36.4 C L Temperature Source Oral Pulse Rate 52 L 50 L Pulse Rate [Right Finger] Pulse Rate from SpO2 Sensor 50 L Respiratory Rate 16 19 Respiratory Effort / Characteristics Non-Labored Spontaneous Respiratory Depth Normal Respiratory Pattern Regular Blood Pressure 172/86 H 172/86 H Blood Pressure [Left Arm] Blood Pressure Mean 114 106 Blood Pressure Mean [Left Arm] Blood Pressure Position Semi-fowlers Blood Pressure Position [Left Arm] Pulse Oximetry 96 96 88 L Oxygen Delivery Method Room Air Room Air Oxygen Flow Rate Sepsis Recent Fever Within 48 Hours No Sepsis New/Unexplained Change in Mental Status No Sepsis Action Taken by Nursing No Action Required 08/29/20 04:30 08/29/20 05:14 08/29/20 05:16 Temperature Temperature Source Pulse Rate 67 66 Pulse Rate [Right Finger] 64 Pulse Rate from SpO2 Sensor 62 66 Respiratory Rate 15 11 L 16 Respiratory Effort / Characteristics Respiratory Depth Respiratory Pattern Blood Pressure 174/100 H 185/93 H Blood Pressure [Left Arm] 185/93 H Blood Pressure Mean 122 139 Blood Pressure Mean [Left Arm] 123 Blood Pressure Position Blood Pressure Position [Left Arm] Sitting Pulse Oximetry 94 96 99 Oxygen Delivery Method Nasal Cannula Nasal Cannula Nasal Cannula Oxygen Flow Rate 4 4 4 Sepsis Recent Fever Within 48 Hours Sepsis New/Unexplained Change in Mental Status Sepsis Action Taken by Nursing 08/29/20 05:30 08/29/20 06:00 08/29/20 06:30 Temperature Temperature Source Pulse Rate 58 L 56 L Pulse Rate [Right Finger] 63 Pulse Rate from SpO2 Sensor 59 L 57 L Respiratory Rate 13 12 16 Respiratory Effort / Characteristics Respiratory Depth Respiratory Pattern Blood Pressure 174/91 H 194/97 H Blood Pressure [Left Arm] 197/100 H Blood Pressure Mean 113 115 Blood Pressure Mean [Left Arm] 132 Blood Pressure Position Blood Pressure Position [Left Arm] Sitting Pulse Oximetry 100 100 100 Oxygen Delivery Method Nasal Cannula Nasal Cannula Nasal Cannula Oxygen Flow Rate 4 4 4 Sepsis Recent Fever Within 48 Hours Sepsis New/Unexplained Change in Mental Status Sepsis Action Taken by Nursing Laboratory Data Result diagrams: 08/29/20 04:12 08/29/20 04:12 Lab Results 08/29/20 08/29/20 Range/Units 04:12 04:12 WBC 11.22 H (4.8-10.8) K/uL RBC 4.40 L (4.7-6.1) M/uL Hgb 14.0 (14.0-18.0) g/dL Hct 40.6 L (42-52) % MCV 92.3 (80-100) fL MCH 31.8 (25-34) pg MCHC 34.5 (32-36) g/dL RDW Std Deviation 47.3 H (36.4-46.3) fL RDW Coeff of Sancho 14.0 (11.5-14.5) % Plt Count 185 (130-400) K/uL MPV 11.9 H (7.4-10.4) fL Immature Gran % (Auto) 0.2 % Neut % (Auto) 92.4 % Lymph % (Auto) 5.4 % [place] % (Auto) 1.8 % Eos % (Auto) 0.1 % Baso % (Auto) 0.1 % Neut # (Auto) 10.37 H (1.4-6.5) K/uL Lymph # (Auto) 0.61 L (1.2-3.4) K/uL [place] # (Auto) 0.20 (0.11-0.59) K/uL Eos # (Auto) 0.01 (0-0.5) K/uL Baso # (Auto) 0.01 (0-0.2) K/uL Immature Gran # (Auto) 0.02 (0.00-0.02) K/uL Sodium 143 (136-145) mmol/L Potassium 3.1 L (3.5-5.1) mmol/L Chloride 106 (98-107) mmol/L Carbon Dioxide 31 (21-32) mmol/L Anion Gap 6.0 (3-11) BUN 12 (7-18) mg/dl Creatinine 1.06 (0.6-1.4) mg/dl Est Cr Clr Drug Dosing Not Reportable Est GFR ( Amer) 82.6 Est GFR (Non-Af Amer) 71.3 BUN/Creatinine Ratio 11.3 (10-20) Glucose 170 H (70-99) mg/dl Calcium 9.6 (8.5-10.1) mg/dl Magnesium 2.2 (1.8-2.4) mg/dl Total Bilirubin 0.5 (0.2-1) mg/dl Direct Bilirubin 0.1 (0-0.2) mg/dl AST 38 H (15-37) U/L ALT 47 (12-78) U/L Alkaline Phosphatase 43 L (45-117) U/L Troponin I < 0.015 (0-0.045) ng/ml Total Protein 7.2 (6.4-8.2) gm/dl Albumin 3.7 (3.4-5.0) gm/dl Lipase 126 (73-393) U/L Administered Medications Cefoxitin Sodium (Mefoxin) 2,000 mg in 60 mls @ 100 mls/hr IV NOW STA Stop: 08/29/20 07:02 Last Admin: 08/29/20 06:47 Dose: 100 mls/hr Documented by: [id number] Discontinued Medications Hydralazine HCl (Hydralazine Hcl 20 Mg/Ml Vial) 5 mg IV NOW STA Stop: 08/29/20 06:36 Last Admin: 08/29/20 06:47 Dose: 5 mg Documented by: [id number] Hydralazine HCl (Hydralazine Hcl 20 Mg/Ml Vial) Confirm Administered Dose 20 mg .ROUTE .STK-MED ONE Stop: 08/29/20 06:35 Last Admin: 08/29/20 06:47 Dose: Not Given Documented by: [id number] Hydromorphone HCl (Hydromorphone Inj 1 Mg/Ml Syringe) 1 mg IV NOW STA Stop: 08/29/20 04:07 Last Admin: 08/29/20 04:13 Dose: 1 mg Documented by: [id number] Sodium Chloride (Nss 1000ml) 1,000 mls @ 999 mls/hr IV .Q1H1M ONE Stop: 08/29/20 05:06 Last Infusion: 08/29/20 05:29 Dose: 0 mls/hr Documented by: [id number] Admin: 08/29/20 04:13 Dose: 999 mls/hr Documented by: [id number] Ioversol (Ioversol 100ml) 94 ml IV ONCE ONE Stop: 08/29/20 04:58 Last Admin: 08/29/20 04:58 Dose: 1 ml Documented by: [id number] Ondansetron HCl (Ondansetron Inj 2 Mg/Ml 2 Ml Vial) 4 mg IV NOW STA Stop: 08/29/20 04:07 Last Admin: 08/29/20 04:13 Dose: 4 mg Documented by: [id number] Discharge Plan Visit Data Chief Complaint: Abdominal Pain Stated Complaint: ABDOMINAL PAIN ED Provider: Moody Mesa Discharge Problem: Acute cholecystitis Forms Stand Alone Forms: [facility] Prescriptions Prescriptions: No Action lisinopril 20 mg tablet 20 mg PO DAILY Qty: 90 RF: 3 gabapentin 400 mg capsule 400 mg PO HS Qty: 90 RF: 3 pantoprazole 40 mg tablet,delayed release (DR/EC) 40 mg PO BID RF: 0 aspirin 81 mg Tablet,Delayed Release (Dr/Ec) 81 mg PO QAM RF: 0
[2020-08-29 04:26] LABS: Basophils # (auto) 0.01 K/uL (0-0.2); Basophils % (auto) 0.1 %; Eosinophils # (auto) 0.01 K/uL (0-0.5); Eosinophils % (auto) 0.1 %; Hematocrit (blood only) 40.6 % (42-52); Immature Granulocytes # (auto) 0.02 K/uL (0.00-0.02); Immature Granulocytes % (auto) 0.2 %; Lymphocytes # (auto) 0.61 K/uL (1.2-3.4); Lymphocytes % (auto) 5.4 %; Mean Corpuscular Hemoglobin 31.8 pg (25-34); Mean Corpuscular Hgb Conc 34.5 g/dL (32-36); Mean Corpuscular Volume 92.3 fL (80-100); Mean Platelet Volume 11.9 fL (7.4-10.4); Monocytes % (auto) 1.8 %; Neutrophils # (auto) 10.37 K/uL (1.4-6.5); Neutrophils % (auto) 92.4 %; Platelet Count 185 K/uL (130-400); RDW Standard Deviation 47.3 fL (36.4-46.3); White Blood Count 11.22 K/uL (4.8-10.8)
[2020-08-29 04:48] LABS: Alanine Aminotransferase 47 U/L (12-78); Albumin Level 3.7 gm/dl (3.4-5.0); Aspartate Aminotransferase 38 U/L (15-37); BUN Creatinine Ratio 11.3 (10-20); Bilirubin Direct 0.1 mg/dl (0-0.2); Blood Urea Nitrogen 12 mg/dl (7-18); Calcium 9.6 mg/dl (8.5-10.1); Carbon Dioxide 31 mmol/L (21-32); Chloride 106 mmol/L (98-107); Est GFR (African American) 82.6; Est GFR (Non-African American) 71.3; Glucose 170 mg/dl (70-99); Lipase 126 U/L (73-393); Magnesium 2.2 mg/dl (1.8-2.4); Potassium 3.1 mmol/L (3.5-5.1); Sodium 143 mmol/L (136-145)
[2020-08-29 04:53] LABS: Alkaline Phosphatase 43 U/L (45-117); Bilirubin,Total 0.5 mg/dl (0.2-1); Total Protein 7.2 gm/dl (6.4-8.2); Troponin I < 0.015 ng/ml (0-0.045)
[2020-08-29] MEDS ORDERED: IOVERSOL 100ml IV ONE (04:57)
[2020-08-29] MEDS ORDERED: cefOXitin 2,000 MG/60 ML BAG IV STA (06:27)
[2020-08-29] MEDS ORDERED: hydrALAZINE HCL 20 MG/ML VIAL ONE (06:34)
[2020-08-29] MEDS ORDERED: hydrALAZINE HCL 20 MG/ML VIAL IV STA (06:35)
--- NOTE | 2020-08-29 06:44 | XRay Report ---
XR chest 1V portable CLINICAL HISTORY: pre-op COMPARISON STUDY: 06/08/2019 FINDINGS: The heart is mildly enlarged. The patient is hyperinflated. There is no failure. There is n o lobar consolidation. There is minor right basilar atelectasis/scarring.[ IMPRESSION: No active disease in the chest. ACT 112: Negative or not required by law. Electronically signed by: Mike Carcamo M.D. 08/29/2020 6:43 AM
--- NOTE | 2020-08-29 06:47 | History & Physical Report ---
Date of Service August 29, 2020 Assessment & Plan (1) Acute cholecystitis: -due to symptoms and imaging findings will plan on cholecystectomy later this morning: -consent obtained -reviewed procedure with patient which will be further reviewed by Dr. Mesa -will obtain COVID-19 test -EKG showed no ischemic changes -CXR obtained in ED did not show any CHF or infiltrates -ED physician has ordered abx--cefoxitin -pt. has not taken his HTN meds--will order 5 mg IV hydralazine -keep npo until after surgery History of Present Illness Chief Complaint: Abdominal Pain Primary Care Provider: Hailey Miranda MD 70 year old male was in his usual state of health when he was awoken by abdominal pain this morning. The pain was unrelated to meals and located in the epigastric area ad RUQ. The pain did not radiate, and he did not report any provocative factors. He had a loose BM, but no BRBPR or melena. He had some nausea without vomiting, but no hematemesis. Over the past few days he did not note any post-prandial pain. Because of the pain he presented to the [facility] ED. In the ED, an abdominal CT scan showed concern for acute cholecystitis--slight distention of GB with sludge and surrounding inflammation. WBC was 11K and he was afebrile. LFTs and lipase were not elevated. He denies any exposure to coronavirus and has no symptoms of such, including but not limited to cough, fevers, chills, loss of taste or smell, or SOB. He is an active person, performing yard work and landscaping and does not experience CP or SOB with such activities. At the time of my exam he was in no distress. He most recently ate at 5:00pm on 08/28/20. Allergies Allergy/AdvReac Type Severity Reaction Status Date / Time No Known Allergies Allergy Verified 08/29/20 04:42 Home Medications Home Medications Medication Instructions Recorded Confirmed Type aspirin 81 mg PO QAM 03/05/19 08/29/20 History gabapentin 400 mg capsule 400 mg PO HS #90 cap 12/10/19 08/29/20 Rx lisinopril 20 mg tablet 20 mg PO DAILY #90 tab 12/10/19 08/29/20 Rx pantoprazole 40 mg PO BID 08/29/20 08/29/20 History Past Med/Surg History Medical History GERD (gastroesophageal reflux disease) HTN (hypertension) Restless leg syndrome Surgical History History of tooth extraction all teeth--under local anesthesia Family History Brother Myocardial infarction Mother Hypertension Other Heart disease No family history of adverse response to anesthesia Social History Smoking Status: Current every day smoker Cigarettes Per Day: 20 a day; Second Hand Exposure: Yes (parents smoked); Hx Alcohol Use: No (quit 1 1/2yrs ago) Hx Substance Use: No Preferred Language: Thai Communication Ability: Effective Superintendent Plant Protection Required: No Beliefs That Will Affect Care: None Current Living Situation: Alone Feels Safe at Home: Yes Assistive Devices: Denture - Upper, Denture - Lower and Glasses Review of Systems Constitutional: no fever, no chills and no fatigue Eyes: no diplopia Ear, Nose, Mouth, Throat: no ear pain Respiratory: no cough and no dyspnea Cardiovascular: no chest pain Gastrointestinal: + abdominal pain and + nausea; no vomiting Genitourinary: no dysuria Musculoskeletal: no back pain Integumentary: no rash Neurologic: no localized weakness Physical Exam Constitutional: well developed and well nourished; no acute distress Eyes: + anicteric sclerae wear glasses ENMT: Ears: no hearing impairment no sublingual jaundice Neck: trachea midline Respiratory: normal respiratory effort, lungs clear to auscultation normal respiratory effort; no respiratory distress and no labored breathing Cardiovascular: Rate/Rhythm: regular rate and regular rhythm Vessels: dorsalis pedis pulses present and radial pulses present Gastrointestinal (Abdomen): soft, with slight distention, no rebound tenderness or guarding; pain with deep palpation in RUQ and epigasttric areas Musculoskeletal: no calf pain Skin: no jaundice Neurologic: moves all extremities Psychiatric: A+Ox3, euthymic affect Results & Data Results & Data ([facility]) Vital Signs (Past 12 Hours) Vital Signs Temp Pulse Pulse Resp BP BP Pulse Ox 08/29/20 06:00 56 L 12 194/97 H 100 08/29/20 05:30 58 L 13 174/91 H 100 08/29/20 05:16 64 16 185/93 H 99 08/29/20 05:14 66 11 L 185/93 H 96 08/29/20 04:30 67 15 174/100 H 94 08/29/20 04:28 88 L 08/29/20 04:01 50 L 19 172/86 H 96 08/29/20 04:00 36.4 C L 52 L 16 172/86 H 96 Supervising Physician Co-Signing Physician Notes Gentleman had macaroni and cheese last night and developed pain after that the epigastric and right upper quadrant and as per Claudy Ahumada physician insurance sales assistant the findings radiographically chemically and physically point to acute cholecystitis Patient had a CAT scan of the past which showed some filling defect in the gallbladder was recommended to follow-up with a surgeon also with gastroenterology but there may been some cystic mass of the head of the pancreas but this failed to materialize On exam the patient does have right upper quadrant tenderness on palpation rest of the abdomen is negative At this point I recommended to proceed laparoscopic cholecystectomy cholangiogr am possible open risk and complication explained to the patient including bleeding infection converting to an open procedure and he would like to proceed accordingly PG Care Time/CCT Total # of Minutes Spent Total Time Spent with Patient: Total time spent is greater than 50% in coordination of care (as documented) at patient's floor/unit and/or counseling patient: Coding Level of Care Code 41868 Initial Inpt Care Lvl 3 Diagnoses Acute cholecystitis K81.0
[2020-08-29] MEDS ORDERED: DEXAMETHASONE SOD INJ 4 MG/ML VIAL ONE (06:55)
[2020-08-29] MEDS ORDERED: NEOSTIGMINE METHYLSULFATE 5 MG/5 ML SYR ONE (06:55)
[2020-08-29] MEDS ORDERED: GLYCOPYRROLATE 0.2 MG/ML VIAL ONE (06:55)
[2020-08-29] MEDS ORDERED: MIDAZOLAM HCL 1 MG/ML 2ML VIAL ONE (06:55)
[2020-08-29] MEDS ORDERED: PROPOFOL IV EMULSION 10 MG/ML 20 ML VIAL IV ONE (06:55)
[2020-08-29] MEDS ORDERED: LIDOCAINE HCL 2% 2 ML VIAL/AMP(20MG/ML) INFIL ONE (06:55)
[2020-08-29] MEDS ORDERED: ONDANSETRON INJ 2 MG/ML 2 ML VIAL ONE ×2 (06:55→10:38)
[2020-08-29] MEDS ORDERED: fentaNYL citrate 100 MCG/2 ML VIAL ONE ×2 (06:55→11:01)
[2020-08-29] MEDS ORDERED: SUGAMMADEX SODIUM 200 MG/2 ML VIAL IV ONE (06:56)
[2020-08-29 06:57] LABS: Appearance Urine Clear (Clear); Bacteria Urine Automated Negative (Negative); Bilirubin Urine Negative (Negative); Blood Urine 1+ (Negative); Color Urine Yellow; Epithelial Cell Urine Auto >30 /lpf (0-5); Glucose Urine UA Negative (Negative); Ketones Urine Negative (Negative); Leukocyte Esterase Urine Negative (Negative); Nitrite Urine Negative (Negative); Protein Urine Negative (Negative); Specific Gravity Urine 1.041 (1.000-1.030); Urobilinogen Urine Negative (Negative); pH Urine 7.5 (4.5-7.5)
--- NOTE | 2020-08-29 07:06 | CT Scan Report ---
CT abd pelvis IV con only CLINICAL HISTORY: acute epigastric pain COMPARISON STUDY: August 2011 TECHNIQUE: The patient was scanned in a dynamic helical fashion during intravenous administration of 94 cc of Optiray 320 A dose lowering technique was utilized adhering to the principles of ALARA. CT DOSE: 398.80 mGy.cm FINDINGS: Lower chest: There are mild basilar atelectatic changes. Liver: The contrast-enhanced liver is normal in size, contour, and attenuation. There is no intrahepa tic biliary ductal dilatation. The hepatic veins and portal veins are patent. Gallbladder: Cholelithiasis with mild pericholecystic fluid/edema. Acute cholecystitis must be consid ered. Spleen: Normal in size and attenuation. Pancreas: Unremarkable. Adrenal glands: There is slight enlargement in a low density 33 mm right adrenal lesion. Given the sl ow growth rate this is likely benign Kidneys: There are bilateral hypodense renal lesions likely representing cysts. A 9 mm exophytic left renal lesion does exceed water attenuation and is therefore indeterminate by strict criteria. Bowel: There are no transition zones indicate bowel obstruction. There is no evidence of acute append icitis. There is colonic diverticulosis. Mild sigmoid wall thickening is felt to be secondary to debbie diverticular muscular hypertrophy. There are no acute peridiverticular inflammatory changes. Peritoneum: Small fat-containing umbilical hernia. There is no ascites. There is no free air. Vasculature: There is mild ectasia of the infrarenal abdominal aorta which measures 25 mm Adenopathy: None. Pelvic viscera: The bladder, and pelvic viscera are unremarkable. Skeletal structures: No destructive osseous lesions are seen. IMPRESSION: 1. No evidence of bowel obstruction. No evidence of free air 2. No evidence of acute diverticulitis. No evidence of acute appendicitis. 3. Cholelithiasis with pericholecystic edema/fluid. The findings are suggestive of acute cholecystiti s, and clinical correlation in this regard is advocated. 4. Slowly enlarging low density right adrenal mass, likely benign ACT 112: Negative or not required by law. Electronically signed by: Mike Carcamo M.D. 08/29/2020 7:05 AM
[2020-08-29] MEDS ORDERED: LIDOCAINE/EPINEPHRINE 1% 20 ML VIAL ONE (07:08)
--- NOTE | 2020-08-29 07:32 | Anesthesiology Consultation ---
Date of Service August 29, 2020 Assessment & Plan (1) Encounter for pre-operative examination: Chart Review Chart Review: Acceptable Risk for Surgery and Patient NOT seen in Pre Admission Testing Consults Requested none ASA ASA3 Proposed Anesthesia Anesthesia Type: General Risk / Benefits Reviewed With: PT / POA / Parent / Guardian, Accepts Plan and Informed Consent Obtained History Surgery Operation Date: 08/29/20 07:30 Proposed Procedures p Laparoscopic Cholecystectomy - Rico Mesa MD Height/Weight Height: 5 ft 4 in Weight: 80.6 kg Allergies Allergy/AdvReac Type Severity Reaction Status Date / Time No Known Allergies Allergy Verified 08/29/20 04:42 Medications Home Medications Medication Instructions Recorded Confirmed Last Taken aspirin 81 mg PO QAM 03/05/19 08/29/20 07/01/19 07:00 gabapentin 400 mg capsule 400 mg PO HS #90 cap 12/10/19 08/29/20 Unknown lisinopril 20 mg tablet 20 mg PO DAILY #90 tab 12/10/19 08/29/20 Unknown pantoprazole 40 mg PO BID 08/29/20 08/29/20 Unknown NPO Date Last Intake of Fluids: 08/28/20 Time Last Intake of Fluids: 19:00 Date Last Intake of Solids: 08/29/20 Time Last Intake of Solids: 17:00 Past Medical History Medical History GERD (gastroesophageal reflux disease) HTN (hypertension) Restless leg syndrome Exercise / Class Metabolic Activity III < 4 Walking/Shop/Light housework Negative for chest pain or shortness of breath. Past Family History Family History Brother Myocardial infarction Mother Hypertension Other Heart disease No family history of adverse response to anesthesia Past Surgical History Surgical History History of tooth extraction all teeth--under local anesthesia Past Anesthesia History No Hx of Anesthesia Complications History of PONV No Hx of PONV Social History Smoking Status: Current every day smoker tobacco type: cigarettes Smoking cigarettes per day: 20 a day Hx Alcohol Use: No (quit 1 1/2yrs ago) Alcohol type: beer alcohol intake frequency: 3 or more drinks per day Hx Substance Use: No substance use type: does not use Review of Systems Negative for chest pain or shortness of breath. Patient denies active symptoms of GERD. Physical Exam Vital Signs Last Vital Signs Temp 36.4 C L 08/29/20 04:00 Pulse 58 L 08/29/20 07:00 Resp 14 08/29/20 07:00 BP 164/89 H 08/29/20 07:00 Pulse Ox 99 08/29/20 07:00 Constitutional not obese ENMT Mouth: + edentulous; no TMJ abnormality and oral opening not small Thyromental Distance: > or= 3.5 Finger Breadths Mallampati Class: I Neck normal visual inspection; neck extension not limited Respiratory normal respiratory effort Auscultation: lungs clear to auscultation bilaterally Cardiovascular Rate/Rhythm: regular rate and regular rhythm Heart Sounds: no murmur Neurologic moves all extremities Psychiatric Orientation: alert and oriented x 3 Testing Laboratory Results 08/29/20 04:12 08/29/20 04:12 Urine Color Yellow 08/29/20 06:25 Urine Appearance Clear (Clear) 08/29/20 06:25 Urine pH 7.5 (4.5-7.5) 08/29/20 06:25 Ur Specific [place] 1.041 (1.000-1.030) H 08/29/20 06:25 Urine Protein Negative (Negative) 08/29/20 06:25 Urine Glucose (UA) Negative (Negative) 08/29/20 06:25 Urine Ketones Negative (Negative) 08/29/20 06:25 Urine Nitrite Negative (Negative) 08/29/20 06:25 Ur Leukocyte Esterase Negative (Negative) 08/29/20 06:25 Urine WBC (Auto) 1-5 /hpf (0-5) 08/29/20 06:25 Urine RBC (Auto) 5-10 /hpf (0-4) H 08/29/20 06:25 U Hyaline Cast (Auto) 1-5 /lpf (0-5) 08/29/20 06:25 U Epithel Cells (Auto) >30 /lpf (0-5) H 08/29/20 06:25 Urine Bacteria (Auto) Negative (Negative) 08/29/20 06:25
[2020-08-29] MEDS ORDERED: OPTIRAY 300 IV PRN (08:47)
--- NOTE | 2020-08-29 10:08 | Fluoroscopy Report ---
[place] cholangiogram OR CLINICAL HISTORY: CHOLANGIOGRAM cholelithiasis/cholecystitis COMPARISON STUDY: CT scan dated 08/29/2020 FLUOROSCOPY TIME: 2 seconds. NUMBER OF FLUOROSCOPIC IMAGES: 1 FINDINGS: A single image from an intraoperative cholangiogram is provided for interpretation. The com mon bile duct is of normal diameter. There are no filling defects to indicate calculi. There is free flow into the duodenum. IMPRESSION: No retained calculi are visualized. ACT 112: Negative or not required by law. Electronically signed by: Mike Carcamo M.D. 08/29/2020 10:06 AM
--- NOTE | 2020-08-29 10:11 | Electrocardiogram Report ---
Test Reason : Blood Pressure : / mmHG Vent. Rate : 055 BPM Atrial Rate : 055 BPM P-R Int : 160 ms QRS Dur : 082 ms QT Int : 438 ms P-R-T Axes : 042 -12 005 degrees QTc Int : 419 ms Sinus bradycardia Nonspecific ST and T wave abnormality Abnormal ECG When compared with ECG of 09-JUN-2019 06:30, Questionable change in QRS axis Nonspecific T wave abnormality now evident in Inferior leads and lateral leads Confirmed by Miguel Smith ([id number]) on 08/29/2020 10:11:07 AM Referred By: REFERRED SELF Confirmed By:Miguel Smith
--- NOTE | 2020-08-29 10:16 | Post Operative Brief Note ---
PG Immediate Post Op with CF Date of Surgery August 29, 2020 Pre & Post Diagnosis Operation Date: 08/29/20 07:30 Pre-Op Diagnosis: Acute cholecystitis. Post-Op Diagnosis: Acute cholecystitis. I identified the patient and participated in the time-out.: Yes Procedure Operation Date: 08/29/20 07:30 Actual Procedures p Laparoscopic Cholecystectomy with cholangiogram. - Rico Mesa MD Surgeon Rico Mesa MD Pt Escort Donal REY Estimated Blood Loss 50 Findings Consistent with Post-Op Diagnosis Specimens Specimen Description: A. Gallbladder and contents. Drains Vito-Lawler Drain (19F Alverto.)
--- NOTE | 2020-08-29 10:31 | Operative Report ---
PG Post Operative Report Pre & Post Diagnosis Operation Date: 08/29/20 07:30 Pre-Op Diagnosis: Acute cholecystitis. Post-Op Diagnosis: Acute cholecystitis. I identified the patient and participated in the time-out.: Yes Procedure Operation Date: 08/29/20 07:30 Actual Procedures p Laparoscopic Cholecystectomy with cholangiogram. - Rico Mesa MD Patient was brought into the operating theater general trach anesthesia allocated time of wait before we went back to the room respecting the coronal protocol even though his rapid test was negative this point the abdomen was prepped byline solution properly draped timeout was had patient was identified this point we made a small incision supraumbilically sufficient to adaptive Veress needle followed by 5 mm trocar which went in without any difficulty direct visualization we placed a 5 mm epigastric port to 5 mm of portal ports with preemptive local analgesic 1 to visualize right upper quadrant we can see that the omentum was completely draped around the structure the most likely was the gallbladder therefore we were able then to dissect this out which took some time creating a plane between the omentum draping in the gallbladder wall once we had enough exposure it would be hard to graft the gallbladder because it was tense although did not appear necrotic we then aspirated with aspirating needle so we were able to find of her sister purchase it and elevated. We did a significant amount of blunt dissection to free up the omentum around the gallbladder as stated was completely draped we worked our way down towards the neck of the gallbladder using electrocautery to free up some of the omental adhesions to the gallbladder we did have a small opening in the gallbladder and some bile came out we did not see any stones. Radiographically he was exposed to have some sludge. At this point we choked up on her gallbladder neck to the we dissected out and we could see the cystic duct taken off the gallbladder. We got a plane of dissection around the cystic duct a small artery around the cystic duct we can see which is cauterized in the takeoff we clipped the cystic duct proximally and a 4 urethral catheter transversing abdominal wall was positioned in the cystic duct. We had a difficult timing with the cystic duct getting enough she will run to get a cholangiogram even though the catheter report was a 4 urethral catheter to go good into the area we thought that this was possibly impeding her stone to keep it from happening the completely seal was we will flush it it would backflow even though we had a clip around the cystic duct and the catheter at this point I tried use the another cholangiogram Cholangiocath and we had a similar problem therefore I then dissected further down along the cystic duct and actually the cystic duct was turned out to be quite long. As we dissected this out I could see that the patient there was a stone think he has been visualized by its indentation in the cystic duct therefore we never got out of the cystic duct by her initial opening site to the 1 where he had a stone that was probably about 3 cm or more. Made another small opening cystic duct where a 4 urethral catheter could be inserted and then we clipped it with this time we had a good seal 2 cholangiograms were taken which showed free flow into the duodenum no obstruction but the cystic duct was quite long. Once we took the catheter out we dissected out from the initial and secondary opening in the cystic duct for the Cholangiocath another 3 to 4 cm wel l away from the common bile duct and doubly secured to cystic duct there would resolve there was some stones that we had extracted out initially when we duct milked up the cells in the liver bed these were small cholesterol type stones probably 1 to 2 mm at which we were able to remove and cystoscopy been completed to area and identified the cystic artery which was easily appreciated doubly clipped proximally and distally when he took the gallbladder out in antegrade fashion using electrocautery leaving the posterior gallbladder as much as possible. Subhepatic suprahepatic area was then checked hemostasis appear satisfactory we irrigated the area copiously there is no evidence of any bleeding we placed the camera right upper quadrant port to visualize her initial entry around the umbilical area there is no adhesions of the umbilical opening at this point we then placed a 19 Alverto drain, not on the right upper quadrant lateral port site and entering into the epigastric area we were able to place it subhepatic lead touches skin edge with 2-0 silk area was checked for stasis again appear satisfactory as blood loss approximately 50 cc possibly an hour exaggeration the procedure was tolerated well by the patient with close the individual trochars with 4-0 Monocryl. Addendum once we remove the 4 urethral catheter from the cystic duct we were able to make sure that the whole catheter was intact which it was. Thank you addendum Tootie Millard physician case assistant was present throughout the procedure and helped with camera work retraction and wound closure Surgeon Rico Mesa MD Donor Services Technician Donal REY Estimated Blood Loss 50 Findings Consistent with Post-Op Diagnosis Specimens gallbladder and contents Description of Procedure drew I attest to the content of the Intraoperative Record and any orders documented therein. Any exceptions are noted below. Supervising Physician Co-Signing Physician Notes Gentleman had macaroni and cheese last night and developed pain after that the epigastric and right upper quadrant and as per Claudy Ahumada physician case assistant the findings radiographically chemically and physically point to acute cholecystitis Patient had a CAT scan of the past which showed some filling defect in the gallbladder was recommended to follow-up with a surgeon also with gastroenterology but there may been some cystic mass of the head of the pancreas but this failed to materialize On exam the patient does have right upper quadrant tenderness on palpation rest of the abdomen is negative At this point I recommended to proceed laparoscopic cholecystectomy cholangiogram possible open risk and complication explained to the patient including bleeding infection converting to an open procedure and he would like to proceed accordingly
[2020-08-29] MEDS ORDERED: ATROPINE SULFATE 0.1 MG/ML 10ML SYR IV PRN (10:50)
[2020-08-29] MEDS ORDERED: fentaNYL citrate 100 MCG/2 ML VIAL IV PRN (10:50)
[2020-08-29] MEDS ORDERED: ONDANSETRON INJ 2 MG/ML 2 ML VIAL IV PRN ×2 (10:50→12:13)
[2020-08-29] MEDS ORDERED: ePHEDrine sulfate 50 MG/ML AMP IV PRN (10:50)
[2020-08-29] MEDS ORDERED: oxyCODONE/ACETAMINOPHEN 5mg/325mg TAB PO PRN ×2 (12:13)
[2020-08-29] MEDS ORDERED: MoRPHine SULFATE 4 MG/ML 1 ML CARP\\VIAL IV PRN ×2 (12:13)
[2020-08-29] MEDS: LACTATED RINGER'S 1,000 ML IV SCH (12:33)
--- NOTE | 2020-08-29 13:11 | Anesthesiology Progress Note ---
Date of Service August 29, 2020 Anesthesia Post Procedure Vital Signs Vital Signs: Temp Pulse Pulse Resp BP BP BP 08/29/20 13:03 37.0 C 89 16 151/81 H 08/29/20 12:36 93 H 18 153/69 H 08/29/20 12:15 37.1 C 92 H 16 145/83 H 08/29/20 11:40 91 H 18 146/80 H 08/29/20 11:30 93 H 18 145/86 H 08/29/20 11:20 94 H 18 166/89 H 08/29/20 11:10 36.8 C 90 16 147/95 H 08/29/20 11:00 90 18 113/70 08/29/20 10:50 88 18 174/92 H 08/29/20 10:40 83 18 158/90 H 08/29/20 10:30 36.2 C L 76 16 167/81 H 08/29/20 07:00 58 L 14 164/89 H 08/29/20 06:34 08/29/20 06:30 63 16 193/97 H 197/100 H 08/29/20 06:19 197/100 H 08/29/20 06:00 56 L 12 194/97 H 08/29/20 05:30 58 L 13 174/91 H 08/29/20 05:16 64 16 185/93 H 08/29/20 05:14 66 11 L 185/93 H 08/29/20 04:30 67 15 174/100 H 08/29/20 04:28 08/29/20 04:01 50 L 19 172/86 H 08/29/20 04:00 36.4 C L 52 L 16 172/86 H Pulse Ox 08/29/20 13:03 96 08/29/20 12:36 95 08/29/20 12:15 92 08/29/20 11:40 95 08/29/20 11:30 99 08/29/20 11:20 100 08/29/20 11:10 98 08/29/20 11:00 97 08/29/20 10:50 97 08/29/20 10:40 10 L 08/29/20 10:30 100 08/29/20 07:00 99 08/29/20 06:34 99 08/29/20 06:30 100 08/29/20 06:19 08/29/20 06:00 100 08/29/20 05:30 100 08/29/20 05:16 99 08/29/20 05:14 96 08/29/20 04:30 94 08/29/20 04:28 88 L 08/29/20 04:01 96 08/29/20 04:00 96 Pain Intensity Upper Abdomen: Pain Intensity: 6 Transfer of Care Handoff Completed per policy Notes Mental Status: alert / awake / arousable and participated in evaluation Patient Amnestic to Procedure: Yes Nausea / Vomiting: adequately controlled Pain: adequately controlled Airway Patency, RR, SpO2: stable & adequate BP & HR: stable & adequate Hydration State: stable & adequate Anesthetic Complications: no major complications apparent and Pt Satisfied with anesthetic care
[2020-08-29] MEDS ORDERED: GABAPENTIN 400 MG CAP PO SCH (21:00)
[2020-08-29] MEDS: PANTOprazole 40 MG TAB PO SCH (21:12)
[2020-08-30] MEDS: LACTATED RINGER'S 1,000 ML IV SCH (01:22)
[2020-08-30 05:35] LABS: Basophils # (auto) 0.01 K/uL (0-0.2); Basophils % (auto) 0.1 %; Eosinophils # (auto) 0.03 K/uL (0-0.5); Eosinophils % (auto) 0.3 %; Hematocrit (blood only) 35.2 % (42-52); Hemoglobin 11.6 g/dL (14.0-18.0); Immature Granulocytes # (auto) 0.02 K/uL (0.00-0.02); Immature Granulocytes % (auto) 0.2 %; Lymphocytes # (auto) 1.72 K/uL (1.2-3.4); Lymphocytes % (auto) 16.9 %; Mean Corpuscular Hemoglobin 30.9 pg (25-34); Mean Corpuscular Volume 93.9 fL (80-100); Monocytes # (auto) 0.78 K/uL (0.11-0.59); Monocytes % (auto) 7.7 %; Neutrophils # (auto) 7.61 K/uL (1.4-6.5); Neutrophils % (auto) 74.8 %; Platelet Count 145 K/uL (130-400); RDW Coefficient of Variation 14.3 % (11.5-14.5); RDW Standard Deviation 49.3 fL (36.4-46.3); Red Blood Count 3.75 M/uL (4.7-6.1); White Blood Count 10.17 K/uL (4.8-10.8)
[2020-08-30 06:17] LABS: Albumin Level 2.7 gm/dl (3.4-5.0); BUN Creatinine Ratio 13.3 (10-20); Bilirubin Direct 0.2 mg/dl (0-0.2); Bilirubin,Total 1.3 mg/dl (0.2-1); Calcium 8.6 mg/dl (8.5-10.1); Creatinine Clr Calc Pharmacy 68.9 ml/min; Est GFR (African American) 91.9; Est GFR (Non-African American) 79.3; Total Protein 5.5 gm/dl (6.4-8.2)
--- NOTE | 2020-08-30 08:20 | Surgery Progress Note ---
Date of Service August 30, 2020 Assessment & Plan (1) Acute cholecystitis: POD 1 lap saurav seen with Dr. Mesa advance diet home with drain if tolerates diet Admission and Anticipated Discharge Date Admission Date: August 29, 2020 Subjective no nausea, pain controlled, some flatus Physical Exam Gastrointestinal (Abdomen): Inspection/Auscultation: + abdominal surgical incision (dry) and + abdominal surgical drain present (70 cc nonbilious); abdomen not distended Percussion/Palpation: abdomen soft Results & Data ([facility]) Vital Signs (Past 12 Hours) Vital Signs Temp Pulse Resp BP Pulse Ox 08/30/20 07:17 36.7 C 64 18 141/73 H 93 08/30/20 04:00 36.9 C 66 16 141/72 H 94 08/29/20 22:57 37.0 C 67 14 133/74 96 PG Care Time/CCT Total # of Minutes Spent Total Time Spent with Patient: Total time spent is greater than 50% in coordination of care (as documented) at patient's floor/unit and/or counseling patient: Coding Level of Care Code None Diagnoses Acute cholecystitis K81.0
[2020-08-30] MEDS: PANTOprazole 40 MG TAB PO SCH (08:54)
[2020-08-30] MEDS ORDERED: ASPIRIN 81 MG ECTAB PO SCH (09:00)
--- NOTE | 2020-09-01 12:15 | Discharge Summary ---
Date of Service September 01, 2020 Admission HPI Per Admitting Provider 70 year old male was in his usual state of health when he was awoken by abdominal pain this morning. The pain was unrelated to meals and located in the epigastric area ad RUQ. The pain did not radiate, and he did not report any provocative factors. He had a loose BM, but no BRBPR or melena. He had some nausea without vomiting, but no hematemesis. Over the past few days he did not note any post-prandial pain. Because of the pain he presented to the [facility] ED. In the ED, an abdominal CT scan showed concern for acute cholecystitis--slight distention of GB with sludge and surrounding inflammation. WBC was 11K and he was afebrile. LFTs and lipase were not elevated. He denies any exposure to coronavirus and has no symptoms of such, including but not limited to cough, fevers, chills, loss of taste or smell, or SOB. He is an active person, performing yard work and landscaping and does not experience CP or SOB with such activities. At the time of my exam he was in no distress. He most recently ate at 5:00pm on 08/28/20. Principal Diagnosis acute cholecystitis Discharge Exam awake Gastrointestinal (Abdomen) Inspection/Auscultation: + abdominal surgical incision (c/d/i) and + abdominal surgical drain present (nonbilious); abdomen not distended Percussion/Palpation: abdomen soft Discharge Data Allergies Allergy/AdvReac Type Severity Reaction Status Date / Time No Known Allergies Allergy Verified 08/29/20 04:42 Consultations 08/29/20 05:57 ED Decision to Admit Stat Procedures Performed Operation Date: 08/29/20 07:30 Actual Procedures p Laparoscopic Cholecystectomy with cholangiogram. - Rico Mesa MD Ordered Studies 08/29/20 04:32 CT abd pelvis IV con only Urgent 08/29/20 07:00 [place] cholangiogram OR Routine Hospital Course (1) Acute cholecystitis: This is a 70yM who presented to the [facility] ED on 08/29/20 with complaints of epigastric and RUQ abdominal pain. Workup in the ED with a CT a/p revealed concern for acute cholecystitis. WBC 11. Patient was seen and examined and decision was made to take patient to the OR. He was kept NPO with IVF and started on preop abx. On 08/29/20 the patient went to the OR for a laparoscopic cholecystectomy and cholangiogram. The patient tolerated the procedure well, see op note for full details. The patient recovered in the PACU and was transferred to the med/surg unit for overnight observation. Patient had a DANIEL drain in place. His diet was advanced as tolerated and pain controlled on a prn regimen. Post operatively the patient was able to void on his own, tolerate a diet, pain was controlled, and incisions c/d/i. DANIEL drain was non bilious. On POD#1 the patient was deemed stable for discharge to home with his DANIEL drain. DANIEL drain teaching was performed. Discharge instructions provided and he was asked to follow up in clinic within 1 week. Patient expressed understanding. Total Time Total Time Spent Total Time Spent (In Minutes): 10 Discharge Plan Discharge Items Patient Disposition: Home - Self-Care Reason For Visit: ABDOMINAL PAIN Discharge Diagnosis: laparoscopic cholecystectomy Activity: Per Instructions section Lifting: No more than 10 pounds Bathing Comment: may shower; no soaking in tubs/pools Exercise/Sports: Wait until after follow-up appointment Driving/Machine Use: do not resume driving while taking narcotics for pain Non-emergency contact: Surgeon Call non-emergency contact if: you have any medication questions, your symptoms worsen, your pain is not controlled, your pain is worsening, your pain is concerning for you, you have a fever, your temperature is above 101.5, your wound has increased redness, your wound has increased drainage and your wound pain has increased Follow-up/Referrals: Rico Mesa MD [Surgeon] - 09/02/20 8:40 am (Please call to schedule follow up in clinic within 1 week) Hailey Miranda MD [Primary Care Provider] - Diet: Regular Addtl Attending Provider Instructions: You have small white bandages over your incisions call steri-strips. You may shower with these on. They will tend to fall off on their own within 7-10 days. Pending Studies at Discharge: Yes Studies:: surgical pathology Stand-Alone Forms: My [employer], Opioid Pain Management Medications and DC Order Prescriptions: New oxycodone-acetaminophen [Percocet] 5-325 mg tablet 1 - 2 tab PO .q4-6h PRN (Reason: pain, for initial therapy, max 6 tabs per day) Qty: 12 RF: 0 Continued lisinopril 20 mg tablet 20 mg PO DAILY Qty: 90 RF: 3 gabapentin 400 mg capsule 400 mg PO HS Qty: 90 RF: 3 pantoprazole 40 mg tablet,delayed release (DR/EC) 40 mg PO BID RF: 0 aspirin 81 mg Tablet,Delayed Release (Dr/Ec) 81 mg PO QAM RF: 0 Discharge Orders: Discharge Order (Routine); Ordered 08/30/20 Ordered By: Conner Martin/Other Patient Handouts: Discharge Instructions Caring for ... Admission Data Admit Date/Time: 08/29/20 10:34 Attending Provider: Rico Mesa Admit Provider: Rico Mesa Primary Care Provider: Hailey Miranda Other Providers: Rico Mesa Other Interventions: Discharge Summary Assessment (RN) Last Done: 08/30/20 09:27 Coding Level of Care Code D/C Day Management <30 mins Diagnoses Acute cholecystitis K81.0
== END 2020-08-30 14:44 | disposition home or self-care (01) ==
LOC: ED 03:55 → 3W 07:35 → OR 07:35

== ENCOUNTER 2025-10-20 11:31 | Observation (INO) ==
--- NOTE | 2025-10-20 11:51 | Emergency Department Note ---
Impression & Plan Episode of confusion, Hypertension, Tobacco use disorder ED Provider Note NAME: COOKIE BERNARD AGE: 75 SEX: M : 1950 ARRIVES VIA: Walk-In INFORMANT: Patient, ED PROVIDER(S): Adan Miller MD CHIEF COMPLAINT: Confusion MEDICAL DECISION MAKING: Patient presents due to concern for confusion. Patient also reportedly with slurred speech today and yesterday. IV was established and blood work was obtained. No acute deficits on my exam currently. Patient was recently seen for a fall and reported head strike but no CT completed that time but the patient did have a left hip x-ray performed which was unremarkable. Will not be repeated at this time. The patient's blood work shows a normal white count with a hemoglobin of 13 with normal platelet count. The patient's kidney function is unremarkable. Urinalysis does not show evidence of obvious infection. CT head and CT angiography of the head and neck are negative. Given the patient's strokelike symptoms confusion without formal workup in the past he believe the patient would benefit from mission also in light of the patient's hypertension. I did speak with Dr. Robles and the patient was admitted to the medicine service. Discussion w/ other healthcare providers: Dr. Robles inpatient medicine service Prior /Outside records reviewed: I reviewed part of a primary care visit note from April 16, [address] Miranda. Known history of CAD essential tremor tobacco abuse spinal stenosis and hypertension. Differential diagnosis: Infection, dehydration, metabolic abnormality, hypo/hyperglycemia, electrolyte imbalance, anemia, UTI, pneumonia, thyroid dysfunction among others were considered. Diagnostics, as interpreted by me: ECG: Normal sinus rhythm, rate of 64, normal intervals, left axis deviation no ST elevations. Cardiac monitoring: An order was placed for continuous cardiac monitoring. The monitor shows a rate of 65 with sinus rhythm. Patient was placed on pulse oximetry Medical decision rules: None Imaging studies: I informally interpreted the patient's chest x-ray does not show evidence of obvious pneumonia with formal report to follow. HPI: Patient presents with his granddaughter due to concern for confusion. Patient reportedly had about an hour long episode of confusion this morning. Patient reportedly felt that there were multiple cats instead of just his own cat that his granddaughter was bringing. He also thought that today was the day of work but he only works Monday. Patient does endorse that he has not been sleeping as well of late maybe 4 to 5 hours a night. Patient denies any chest pains or shortness of breath no nausea or vomiting. Patient states that he has had some slurred speech today and yesterday. No history of stroke or mini stroke. He does smoke tobacco. Patient also thought that his daughter had visited him this morning who had not actually been at the home. Granddaughter does provide some of the history. PAST MEDICAL HISTORY: See Below PAST SURGICAL HISTORY: See Below SOCIAL HISTORY: See Below HOME MEDICATIONS: See Below ALLERGIES: See Below VITALS: See Below PHYSICAL EXAMINATION: GENERAL: NAD, non-toxic. EYE EXAM: Normal conjunctiva. PERRL, no anisocoria and EOM's grossly intact w/o pain. OROPHARYNX: Moist mucus membranes, grossly normal dentition. NECK: Trachea midline, no stridor. LUNGS: Clear to auscultation. Normal chest wall mechanics. HEART: NSR, no MRG. ABDOMEN: Abdomen soft, non-tender, no masses, no rebound or guarding. BACK: No CVA TTP. SKIN: No rashes and no bruising. UPPER EXTREMITIES: Upper extremities are grossly normal. LOWER EXTREMITIES: Grossly normal, no edema. NEURO EXAM: Awake and alert, follows commands, no obvious facial asymmetry, normal speech, moves all 4 extremities. Good [id number], no drift no sensory deficits. Oriented to person place and time able to answer questions about a year birthdate and simple arithmetic. Past Med/Surg History Problem List (Updated 10/21/25 @ 08:19 by Adan Miller MD) Tobacco use disorder (Acute) Hypertension (Acute) Episode of confusion (Acute) Hyperlipidemia Uncontrolled hypertension Hypertensive encephalopathy Radicular leg pain (Acute) Left leg paresthesias (Acute) Left leg pain (Acute) Essential tremor (Chronic) Impaired fasting glucose (Chronic) HTN (hypertension) (Chronic) GERD (gastroesophageal reflux disease) (Chronic) Restless leg syndrome (Chronic) Sensorineural hearing loss of both ears (Chronic) Coronary artery calcification (Chronic) seen on chest CT Post herpetic neuralgia (Chronic) Lumbar spinal stenosis (Chronic) Medical History History of Helicobacter pylori infection Personal history of nicotine dependence Radial head fracture (2023) Surgical History History of esophagogastroduodenoscopy (EGD) S/P laparoscopic cholecystectomy History of tooth extraction all teeth--under local anesthesia Family History Brother Myocardial infarction Mother Hypertension Other Heart disease No family history of adverse response to anesthesia No family history of bleeding disorder Denies family history of Ovarian cancer Prostate cancer Coronary heart disease Breast cancer Colorectal cancer Cancer Stroke Asthma Social History Smoking Status: Current every day smoker Tobacco Type: Cigarettes Age Started Using Tobacco: 17; packs per day: 1; Cigarettes Per Day: 20; Second Hand Exposure: Yes; Do You Dip or Chew Tobacco: No; Hx Alcohol Use: No Hx Substance Use: No Preferred Language: Amharic Communication Ability: Effective Visual Impairment: No Limitations Hearing Ability: Normal Staffing Analyst Required: No Beliefs That Will Affect Care: None marital status: Single Current Living Situation: Alone current occupational status: retired current occupation: retired from career in [employer] Feels Safe at Home: Yes Childhood Exposure to Second-Hand Smoke: Yes Diet: regular caffeine: Yes Dental Care, Regularly: No Physical Activity Frequency: Daily Seatbelt Use: always Sunscreen Use: No Assistive Devices: Denture - Upper, Denture - Lower and Glasses Allergies Allergies Allergy/AdvReac Type Severity Reaction Status Date / Time No Known Drug Allergies Allergy Verified 04/16/25 14:22 Home Meds Home Medications Medication Instructions Recorded Confirmed aspirin 81 mg tablet,delayed 0 mg PO QAM 03/05/19 10/20/25 release gabapentin 300 mg capsule 300 mg PO UD 12/25/24 10/20/25 Previous Rx's Medication Instructions Recorded pantoprazole 40 mg tablet,delayed 40 mg PO DAILY #90 tabs 02/24/25 release rosuvastatin 10 mg tablet 10 mg PO DAILY #100 tabs 02/24/25 metoprolol succinate 25 mg 12.5 mg (1/2 x 25 mg) PO DAILY 90 09/24/25 tablet,extended release 24 hr days #45 tabs olmesartan 20 mg tablet 20 mg PO DAILY #90 tabs 09/29/25 Results & Data (ED) Vital Signs Vital Signs - 24 hr 10/20/25 11:34 10/20/25 12:42 10/20/25 12:43 Pulse Rate 71 66 67 Pulse Rate from SpO2 Sensor 67 Respiratory Rate 20 13 Respiratory Effort / Characteristics Non-Labored Spontaneous Respiratory Depth Normal Respiratory Pattern Regular Blood Pressure 200/92 H Blood Pressure Mean 128 Pulse Oximetry 96 96 Oxygen Delivery Method Room Air Sepsis New/Unexplained Change in Mental Status No Sepsis Action Taken by Nursing No Action Required 10/20/25 13:00 10/20/25 13:30 10/20/25 13:32 Pulse Rate 67 65 Pulse Rate from SpO2 Sensor 66 Respiratory Rate 15 18 Respiratory Effort / Characteristics Respiratory Depth Respiratory Pattern Blood Pressure 188/98 H Blood Pressure Mean 116 Pulse Oximetry 95 Oxygen Delivery Method Sepsis New/Unexplained Change in Mental Status Sepsis Action Taken by Nursing 10/20/25 13:51 10/20/25 14:00 Pulse Rate 61 66 Pulse Rate from SpO2 Sensor 66 Respiratory Rate 17 18 Respiratory Effort / Characteristics Respiratory Depth Respiratory Pattern Blood Pressure 191/96 H 205/104 H Blood Pressure Mean 127 137 Pulse Oximetry 96 Oxygen Delivery Method Sepsis New/Unexplained Change in Mental Status Sepsis Action Taken by [facility] Medications Current Medication List: was personally reviewed by me Laboratory Data Attestation: I reviewed the patient's lab results. 10/21/25 06:14 10/21/25 06:14 Lab Results 10/20/25 10/20/25 10/20/25 Range/Units 11:38 11:55 12:08 WBC 9.33 (4.8-10.8) K/ul RBC 4.18 L (4.70-6.10) M/uL Hgb 13.3 L (14.0-18.0) g/dL POC Hgb (14.0-18.0) g/dl Hct 38.9 L (42.0-52.0) % POC Hct (42-52) % MCV 93.1 (80.0-100.0) fL MCH 31.8 (25.0-34.0) pg MCHC 34.2 (32.0-36.0) g/dL RDW Std Deviation 47.2 H (36.4-46.3) fL RDW Coeff of Sancho 13.9 (11.5-14.5) % Plt Count 158 (130-400) K/uL MPV 11.7 (9.4-12.4) fL Immature Gran % (Auto) 0.3 % Neut % (Auto) 72.8 % Lymph % (Auto) 17.9 % Wayne % (Auto) 7.1 % Eos % (Auto) 1.4 % Baso % (Auto) 0.5 % Neut # (Auto) 6.79 H (1.40-6.50) K/uL Lymph # (Auto) 1.67 (1.20-3.40) K/uL Wayne # (Auto) 0.66 H (0.11-0.59) K/uL Eos # (Auto) 0.13 (0.00-0.50) K/uL Baso # (Auto) 0.05 (0.00-0.20) K/uL Immature Gran # (Auto) 0.03 (0.01-0.20) K/uL POC Sodium (135-144) mmol/L Sodium 143 (136-145) mmol/L POC Potassium (3.3-5.0) mmol/L Potassium 3.8 (3.5-5.1) mmol/L POC Chloride (101-112) mmol/L Chloride 107 (98-107) mmol/L Carbon Dioxide 28 (21-32) mmol/L POC Total CO2 (24-31) mmol/L Anion Gap 8 (3-11) POC Anion Gap (16-25) mmol/L POC BUN (7-18) mg/dl BUN 19 (6-23) mg/dl Creatinine 1.23 (0.6-1.4) mg/dl POC Creatinine (0.6-1.3) mg/dl Est Cr Clr Drug Dosing 56.1 ml/min eGFR 61.61 BUN/Creatinine Ratio 15.4 (10-20) Glucose 91 (70-99(Fasting)) mg/dl POC Glucose 87 (70-99) mg/dl POC Glucose (other) (70-99) mg/dl Calcium 9.2 (8.6-10.3) mg/dl POC Ioniz Calcium Reji (1.12-1.32) mmol/l Total Bilirubin 0.6 (0.2-1.0) mg/dl AST 20 (13-39) U/L ALT 19 (7-52) U/L Alkaline Phosphatase 31 L (34-104) U/L Total Protein 6.7 (6.0-8.3) gm/dl Albumin 3.9 (3.4-5.0) gm/dl Globulin 2.8 (2.5-4.0) gm/dl Albumin/Globulin Ratio 1.4 (0.9-2) TSH 1.388 (0.300-4.500) uIu/ml Urine Color Yellow Urine Appearance Clear (Clear) Urine pH 7.0 (4.5-7.5) Ur Specific Bonaparte 1.015 (1.000-1.030) Urine Protein Negative (Negative) Urine Glucose (UA) Negative (Negative) Urine Ketones Negative (Negative) Urine Blood Trace H (Negative) Urine Nitrite Negative (Negative) Urine Bilirubin Negative (Negative) Urine Urobilinogen Negative (Negative) Ur Leukocyte Esterase Negative (Negative) Urine WBC (Auto) 0-5 (0-5) /hpf Urine RBC (Auto) 6-10 H (0-2) /hpf U Hyaline Cast (Auto) 0-2 (0-2) /lpf U Epithel Cells (Auto) 0-2 (0-2) /hpf Urine Bacteria (Auto) None Seen (None Seen) Urine Comment 10/20/25 Range/Units 12:19 WBC (4.8-10.8) K/ul RBC (4.70-6.10) M/uL Hgb (14.0-18.0) g/dL POC Hgb 12.9 L (14.0-18.0) g/dl Hct (42.0-52.0) % POC Hct 38 L (42-52) % MCV (80.0-100.0) fL MCH (25.0-34.0) pg MCHC (32.0-36.0) g/dL RDW Std Deviation (36.4-46.3) fL RDW Coeff of Sancho (11.5-14.5) % Plt Count (130-400) K/uL MPV (9.4-12.4) fL Immature Gran % (Auto) % Neut % (Auto) % Lymph % (Auto) % Wayne % (Auto) % Eos % (Auto) % Baso % (Auto) % Neut # (Auto) (1.40-6.50) K/uL Lymph # (Auto) (1.20-3.40) K/uL Wayne # (Auto) (0.11-0.59) K/uL Eos # (Auto) (0.00-0.50) K/uL Baso # (Auto) (0.00-0.20) K/uL Immature Gran # (Auto) (0.01-0.20) K/uL POC Sodium 144 (135-144) mmol/L Sodium (136-145) mmol/L POC Potassium 3.4 (3.3-5.0) mmol/L Potassium (3.5-5.1) mmol/L POC Chloride 103 (101-112) mmol/L Chloride (98-107) mmol/L Carbon Dioxide (21-32) mmol/L POC Total CO2 26 (24-31) mmol/L Anion Gap (3-11) POC Anion Gap 19.0 (16-25) mmol/L POC BUN 20 H (7-18) mg/dl BUN (6-23) mg/dl Creatinine (0.6-1.4) mg/dl POC Creatinine 1.4 H (0.6-1.3) mg/dl Est Cr Clr Drug Dosing ml/min eGFR BUN/Creatinine Ratio (10-20) Glucose (70-99(Fasting)) mg/dl POC Glucose (70-99) mg/dl POC Glucose (other) 83 (70-99) mg/dl Calcium (8.6-10.3) mg/dl POC Ioniz Calcium Reji 1.14 (1.12-1.32) mmol/l Total Bilirubin (0.2-1.0) mg/dl AST (13-39) U/L ALT (7-52) U/L Alkaline Phosphatase (34-104) U/L Total Protein (6.0-8.3) gm/dl Albumin (3.4-5.0) gm/dl Globulin (2.5-4.0) gm/dl Albumin/Globulin Ratio (0.9-2) TSH (0.300-4.500) uIu/ml Urine Color Urine Appearance (Clear) Urine pH (4.5-7.5) Ur Specific Bonaparte (1.000-1.030) Urine Protein (Negative) Urine Glucose (UA) (Negative) Urine Ketones (Negative) Urine Blood (Negative) Urine Nitrite (Negative) Urine Bilirubin (Negative) Urine Urobilinogen (Negative) Ur Leukocyte Esterase (Negative) Urine WBC (Auto) (0-5) /hpf Urine RBC (Auto) (0-2) /hpf U Hyaline Cast (Auto) (0-2) /lpf U Epithel Cells (Auto) (0-2) /hpf Urine Bacteria (Auto) (None Seen) Urine Comment Administered Medications Acetaminophen (Acetaminophen 325 Mg Tab) 650 mg PO Q6H PRN PRN Reason: Fever or headache Stop: 11/19/25 15:20 Last Admin: 10/20/25 20:09 Dose: 650 mg Documented By: BR Discontinued Medications Amlodipine Besylate (Amlodipine Besylate 5 Mg Tab) 5 mg PO NOW ONE Stop: 10/20/25 13:39 Last Admin: 10/20/25 13:51 Dose: 5 mg Documented By: CEF Hydralazine HCl (Hydralazine Hcl 20 Mg/Ml Vial) 10 mg IV NOW STA Stop: 10/20/25 14:52 Last Admin: 10/20/25 14:55 Dose: 10 mg Documented By: ASHLEY Sodium Chloride (Nss) 500 mls @ 999 mls/hr IV .Q31M JESSE Stop: 10/20/25 12:30 Last Infusion: 10/20/25 13:35 Dose: Infused Documented By: Admin: 10/20/25 12:14 Dose: 999 mls/hr Documented By: REMY Ioversol (Optiray 320 125ml) 120 ml IV ONCE ONE Stop: 10/20/25 12:30 Last Admin: 10/20/25 12:29 Dose: 120 ml Documented By: ALCON Imaging Data Radiologist's Impression: Chest X-Ray 10/20/25 12:00 XR chest 1V portable HISTORY: 75 years-old Male weakness acute weakness COMPARISON: 08/29/2020 TECHNIQUE: AP view of the chest FINDINGS: Cardiac mediastinal and hilar silhouettes are within normal limits. No pneumothorax, pleural effusion, airspace consolidation or overt pulmonary edema. There is spondylotic spurring of the spine. Mild lower thoracic levoscoliosis. IMPRESSION: No acute process ACT 112: Negative or not required by law. The above report was generated using voice recognition software. It may contain grammatical, syntax or spelling errors. Electronically signed by: Guido Meléndez M.D. 10/20/2025 12:30 PM Chest X-Ray 10/20/25 12:00 XR chest 1V portable HISTORY: 75 years-old Male weakness acute weakness COMPARISON: 08/29/2020 TECHNIQUE: AP view of the chest FINDINGS: Cardiac mediastinal and hilar silhouettes are within normal limits. No pneumothorax, pleural effusion, airspace consolidation or overt pulmonary edema. There is spondylotic spurring of the spine. Mild lower thoracic levoscoliosis. IMPRESSION: No acute process ACT 112: Negative or not required by law. The above report was generated using voice recognition software. It may contain grammatical, syntax or spelling errors. Electronically signed by: Guido Meléndez M.D. 10/20/2025 12:[address] 10/20/25 12:00 CT SCAN OF THE BRAIN WITHOUT IV CONTRAST CLINICAL HISTORY: Fall. Change in mental status. Slurred speech. COMPARISON STUDY: No priors TECHNIQUE: Unenhanced CT scan of the brain is performed from the vertex to the skull base. Images are reviewed in the axial, sagittal, coronal planes. A dose lowering technique was utilized adhering to the principles of ALARA. FINDINGS: Brain parenchyma: There is age-related involutional change noting moderate subcortical and periventricular microangiopathic disease. There is no hemorrhage, mass effect, or evidence of acute territorial ischemia by CT criteria. Cruz-white matter differentiation is preserved. No extra-axial fluid collection is seen. Ventricles, sulci, cisterns: Prominent secondary to involutional change. Intracranial vasculature: There is atherosclerotic calcification of the cavernous carotid and vertebral arteries. Calvarium: Unremarkable. Sinuses and mastoids: There is trace mucosal thickening within the frontal sinuses. The visualized paranasal sinuses are otherwise clear. There are trace bilateral mastoid effusions. Cerumen is noted in the external auditory canals. Orbits: The bony orbits are grossly intact. IMPRESSION: There is no hemorrhage, mass effect, or evidence of acute territorial ischemia by CT criteria. ACT 112: Negative or not required by law. Electronically signed by: Juanito Cortes M.D. 10/20/2025 12:44 PM Head CTA 10/20/25 12:00 CT ANGIOGRAM OF THE BRAIN CLINICAL HISTORY: Fall. Head injury. Slurred speech. COMPARISON STUDY: Unenhanced CT of the brain performed concurrently on 10/20/2025. TECHNIQUE: Following the IV administration of 120 cc of Optiray 320, CT angiogram of the brain was performed from the skull base to the vertex. Images are reviewed in the axial, sagittal, and coronal planes. 3-D MIPS images are created and assessed. IV contrast was administered without complication. A dose lowering technique was utilized adhering to the principles of ALARA. CT DOSE: 957.42 mGy.cm FINDINGS: Brain parenchyma: There is age-related involutional change noting moderate subcortical and periventricular microangiopathic disease. There is no evidence of hemorrhage or mass effect noting angiographic phase technique. There is no evidence of enhancing mass lesion on the angiogram phase images. No extra-axial fluid collection is seen. Cruz-white matter differentiation is preserved. Ventricles, sulci, and cisterns: Prominent secondary to involutional change. CT angiogram of the brain: There is atherosclerotic calcification of the cavernous carotid and vertebral arteries. The internal carotid arteries at the skull base are patent, as are the anterior and middle cerebral arteries. The vertebrobasilar system and posterior cerebral arteries are patent. The vertebral arteries are codominant. There is no aneurysm, high-grade stenosis, or focal vessel cutoff identified throughout the intracranial circulation. Dural sinuses: Clear as visualized. Orbits: The bony orbits are intact. The orbital contents are normal as visualized. Sinuses and mastoids: There is trace mucosal thickening in the frontal sinuses. The remaining paranasal sinuses are clear. There are trace mastoid effusions. Cerumen is noted in the external auditory canals. Calvarium: Unremarkable. IMPRESSION: 1. There is no evidence of hemorrhage or mass effect noting angiographic phase technique. 2. Unremarkable CT angiogram of the brain. ACT 112: Negative or not required by law. Electronically signed by: Juanito Cortes M.D. 10/20/2025 12:52 PM Neck CTA 10/20/25 12:00 CT angio neck with con CLINICAL HISTORY: 75 years-old Male with slurred speech, confusion. Acute stroke like symptoms COMPARISON STUDY: CTA head same day TECHNIQUE: Following the IV administration of 120 mL of Optiray, CT angiogram of the neck was performed from the aortic arch to the skull base. Images are reviewed in the axial, sagittal, and coronal planes. 3-D MIPS images are created and assessed. IV contrast was administered without complication. All measurements were calculated based on NASCET criteria. A dose lowering technique was utilized adhering to the principles of ALARA. FINDINGS: Moderate atherosclerosis of the thoracic aortic arch. There is patency of the innominate and imaged subclavian arteries. Patency of the common carotid arteries. Atherosclerosis of the carotid bulbs causing less than 50% stenosis bilaterally. Patent and codominant vertebral arteries. The basilar artery is patent. The imaged lung apices appear clear. No pneumothorax. Multilevel degenerative changes of the cervical spine. IMPRESSION:Unremarkable CTA of the neck without aneurysm, dissection, high-grade stenosis or arterial occlusion. ACT 112: Negative or not required by law. The above report was generated using voice recognition software. It may contain grammatical, syntax or spelling errors. Electronically signed by: Guido Meléndez M.D. 10/20/2025 1:02 PM Discharge Plan Visit Data Chief Complaint: Confusion Stated Complaint: CONFUSED, SHAKING ED Provider: Adan Miller Discharge Problem: Episode of confusion, Hypertension, Tobacco use disorder Patient Disposition: Admitted As Inpatient Condition: Good Discharge Instructions Interventions: ED Discharge Assessment Last Done: 10/20/25 15:21 Discharge Problem: Hypertension Qualifiers: Hypertension type: unspecified Qualified Code(s): I10 - Essential (primary) hypertension
[2025-10-20] MEDS: SODIUM CHLORIDE 0.9% 500 ML IV SCH (12:14)
[2025-10-20] MEDS: OPTIRAY 320 125ml IV ONE (12:29)
[2025-10-20 12:32] LABS: Hematocrit (blood only) 38.9 % (42.0-52.0); Hemoglobin 13.3 g/dL (14.0-18.0); Immature Granulocytes # (auto) 0.03 K/uL (0.01-0.20); Immature Granulocytes % (auto) 0.3 %; Mean Corpuscular Hemoglobin 31.8 pg (25.0-34.0); Mean Corpuscular Volume 93.1 fL (80.0-100.0); Platelet Count 158 K/uL (130-400); RDW Standard Deviation 47.2 fL (36.4-46.3); Red Blood Count 4.18 M/uL (4.70-6.10); White Blood Count 9.33 K/ul (4.8-10.8)
--- NOTE | 2025-10-20 12:32 | XRay Report ---
XR chest 1V portable HISTORY: 75 years-old Male weakness acute weakness COMPARISON: 08/29/2020 TECHNIQUE: AP view of the chest FINDINGS: Cardiac mediastinal and hilar silhouettes are within normal limits. No pneumothorax, pleural effusion , airspace consolidation or overt pulmonary edema. There is spondylotic spurring of the spine. Mild l ower thoracic levoscoliosis. IMPRESSION: No acute process ACT 112: Negative or not required by law. The above report was generated using voice recognition software. It may contain grammatical, syntax o r spelling errors. Electronically signed by: Guido Meléndez M.D. 10/20/2025 12:30 PM
[2025-10-20 12:43] LABS: Appearance Urine Clear (Clear); Bacteria Urine Automated None Seen (None Seen); Cast Urine Automated 0-2 /lpf (0-2); Epithelial Cell Urine Auto 0-2 /hpf (0-2); Glucose Urine UA Negative (Negative); WBC Urine Automated 0-5 /hpf (0-5)
--- NOTE | 2025-10-20 12:45 | CT Scan Report ---
CT SCAN OF THE BRAIN WITHOUT IV CONTRAST CLINICAL HISTORY: Fall. Change in mental status. Slurred speech. COMPARISON STUDY: No priors TECHNIQUE: Unenhanced CT scan of the brain is performed from the vertex to the skull base. Images are reviewed in the axial, sagittal, coronal planes. A dose lowering technique was utilized adhering to the principles of ALARA. FINDINGS: Brain parenchyma: There is age-related involutional change noting moderate subcortical and periventri cular microangiopathic disease. There is no hemorrhage, mass effect, or evidence of acute territorial ischemia by CT criteria. Cruz-white matter differentiation is preserved. No extra-axial fluid collec tion is seen. Ventricles, sulci, cisterns: Prominent secondary to involutional change. Intracranial vasculature: There is atherosclerotic calcification of the cavernous carotid and vertebr al arteries. Calvarium: Unremarkable. Sinuses and mastoids: There is trace mucosal thickening within the frontal sinuses. The visualized pa ranasal sinuses are otherwise clear. There are trace bilateral mastoid effusions. Cerumen is noted in the external auditory canals. Orbits: The bony orbits are grossly intact. IMPRESSION: There is no hemorrhage, mass effect, or evidence of acute territorial ischemia by CT jacquelin downing. ACT 112: Negative or not required by law. Electronically signed by: Juanito Cortes M.D. 10/20/2025 12:44 PM
--- NOTE | 2025-10-20 12:54 | CT Scan Report ---
CT ANGIOGRAM OF THE BRAIN CLINICAL HISTORY: Fall. Head injury. Slurred speech. COMPARISON STUDY: Unenhanced CT of the brain performed concurrently on 10/20/2025. TECHNIQUE: Following the IV administration of 120 cc of Optiray 320, CT angiogram of the brain was pe rformed from the skull base to the vertex. Images are reviewed in the axial, sagittal, and coronal pl anes. 3-D MIPS images are created and assessed. IV contrast was administered without complication. A dose lowering technique was utilized adhering to the principles of ALARA. CT DOSE: 957.42 mGy.cm FINDINGS: Brain parenchyma: There is age-related involutional change noting moderate subcortical and periventri cular microangiopathic disease. There is no evidence of hemorrhage or mass effect noting angiographic phase technique. There is no evidence of enhancing mass lesion on the angiogram phase images. No ext ra-axial fluid collection is seen. Cruz-white matter differentiation is preserved. Ventricles, sulci, and cisterns: Prominent secondary to involutional change. CT angiogram of the brain: There is atherosclerotic calcification of the cavernous carotid and verteb ral arteries. The internal carotid arteries at the skull base are patent, as are the anterior and mid dle cerebral arteries. The vertebrobasilar system and posterior cerebral arteries are patent. The evaristo tebral arteries are codominant. There is no aneurysm, high-grade stenosis, or focal vessel cutoff leo ntified throughout the intracranial circulation. Dural sinuses: Clear as visualized. Orbits: The bony orbits are intact. The orbital contents are normal as visualized. Sinuses and mastoids: There is trace mucosal thickening in the frontal sinuses. The remaining paranas al sinuses are clear. There are trace mastoid effusions. Cerumen is noted in the external auditory ca nals. Calvarium: Unremarkable. IMPRESSION: 1. There is no evidence of hemorrhage or mass effect noting angiographic phase technique. 2. Unremarkable CT angiogram of the brain. ACT 112: Negative or not required by law. Electronically signed by: Juanito Cortes M.D. 10/20/2025 12:52 PM
[2025-10-20 12:58] LABS: Alanine Aminotransferase 19.0 U/L (7-52); Albumin Globulin Ratio 1.4 (0.9-2); Albumin Level 3.9 gm/dl (3.4-5.0); Alkaline Phosphatase 31.0 U/L (34-104); Anion Gap 8.0 (3-11); Bilirubin,Total 0.6 mg/dl (0.2-1.0); Blood Urea Nitrogen 19.0 mg/dl (6-23); Calcium 9.2 mg/dl (8.6-10.3); Carbon Dioxide 28.0 mmol/L (21-32); Chloride 107.0 mmol/L (98-107); Creatinine Clr Calc Pharmacy 56.1 ml/min; Globulin 2.8 gm/dl (2.5-4.0); Glucose 91.0 mg/dl (70-99(Fasting)); Potassium 3.8 mmol/L (3.5-5.1); Sodium 143.0 mmol/L (136-145); Total Protein 6.7 gm/dl (6.0-8.3)
--- NOTE | 2025-10-20 13:04 | CT Scan Report ---
CT angio neck with con CLINICAL HISTORY: 75 years-old Male with slurred speech, confusion. Acute stroke like symptoms COMPARISON STUDY: CTA head same day TECHNIQUE: Following the IV administration of 120 mL of Optiray, CT angiogram of the neck was perform ed from the aortic arch to the skull base. Images are reviewed in the axial, sagittal, and coronal pl anes. 3-D MIPS images are created and assessed. IV contrast was administered without complication. Al l measurements were calculated based on NASCET criteria. A dose lowering technique was utilized adhe ring to the principles of ALARA. FINDINGS: Moderate atherosclerosis of the thoracic aortic arch. There is patency of the innominate and imaged s ubclavian arteries. Patency of the common carotid arteries. Atherosclerosis of the carotid bulbs caus ing less than 50% stenosis bilaterally. Patent and codominant vertebral arteries. The basilar artery is patent. The imaged lung apices appear clear. No pneumothorax. Multilevel degenerative changes of the cervical spine. IMPRESSION:Unremarkable CTA of the neck without aneurysm, dissection, high-grade stenosis or arterial occlusion. ACT 112: Negative or not required by law. The above report was generated using voice recognition software. It may contain grammatical, syntax o r spelling errors. Electronically signed by: Guido Meléndez M.D. 10/20/2025 1:02 PM
[2025-10-20 13:13] LABS: Thyroid Stimulating Hormone 1.388 uIu/ml (0.300-4.500)
--- NOTE | 2025-10-20 14:56 | History & Physical Report ---
Date of Service October 20, 2025 Assessment & Plan (1) Hypertensive encephalopathy: Plan: Supportive care. Treat elevated blood pressure. (2) Uncontrolled hypertension: Plan: Olmesartan switched to amlodipine. Continue metoprolol succinate. Use IV hydralazine as needed (3) Hyperlipidemia: Plan: Stable. Continue rosuvastatin Plan Hopeful discharge to home tomorrow, October 21 Admission and Anticipated Discharge Date Admission Date: October 20, 2025 History of Present Illness Chief Complaint: altered mental status, uncontrolled HTN Primary Care Provider: Hailey Miranda MD 75-year-old white male who began exhibiting bizarre behavior today. He was seeing things and making statements that made no sense. He was brought to the ED for evaluation. His altered mental status has since resolved. He was found to have elevated blood pressure in the face of taking Toprol-XL and olmesartan. Head CT scan was negative for CVA. He had no focal neurological deficits. Head and neck CTA was also negative for critical arterial disease. It appears he has hypertensive encephalopathy associated with uncontrolled hypertension. He has been started on amlodipine and IV hydralazine will be given as needed for blood pressure control. No syncope, seizure activity, chest pain, shortness of breath. Allergies Allergy/AdvReac Type Severity Reaction Status Date / Time No Known Drug Allergies Allergy Verified 04/16/25 14:22 Home Medications Medication Instructions Recorded Confirmed Type aspirin 81 mg tablet,delayed 81 mg PO QAM 03/05/19 04/16/25 History release gabapentin 300 mg capsule See Rx Instructions .Route .COMPLEX 12/25/24 04/16/25 History pantoprazole 40 mg tablet,delayed 40 mg PO DAILY #90 tabs 02/24/25 04/16/25 Rx release rosuvastatin 10 mg tablet 10 mg PO DAILY #100 tabs 02/24/25 04/16/25 Rx metoprolol succinate 25 mg 12.5 mg (1/2 x 25 mg) PO DAILY 90 09/24/25 Rx tablet,extended release 24 hr days #45 tabs olmesartan 20 mg tablet 20 mg PO DAILY #90 tabs 09/29/25 Rx Past Med/Surg History Problem List (Updated 10/20/25 @ 14:54 by Sonny Robles MD) Hyperlipidemia Uncontrolled hypertension Hypertensive encephalopathy Radicular leg pain (Acute) Left leg paresthesias (Acute) Left leg pain (Acute) Essential tremor (Chronic) Impaired fasting glucose (Chronic) HTN (hypertension) (Chronic) GERD (gastroesophageal reflux disease) (Chronic) Restless leg syndrome (Chronic) Sensorineural hearing loss of both ears (Chronic) Coronary artery calcification (Chronic) seen on chest CT Post herpetic neuralgia (Chronic) Lumbar spinal stenosis (Chronic) Medical History (Updated 10/20/25 @ 14:54 by Sonny Robles MD) History of Helicobacter pylori infection Personal history of nicotine dependence Radial head fracture (2023) Surgical History History of esophagogastroduodenoscopy (EGD) S/P laparoscopic cholecystectomy History of tooth extraction all teeth--under local anesthesia Family History Brother Myocardial infarction Mother Hypertension Other Heart disease No family history of adverse response to anesthesia No family history of bleeding disorder Denies family history of Ovarian cancer Prostate cancer Coronary heart disease Breast cancer Colorectal cancer Cancer Stroke Asthma Social History Smoking Status: Current every day smoker Tobacco Type: Cigarettes Age Started Using Tobacco: 17; packs per day: 1; Cigarettes Per Day: 20; Second Hand Exposure: Yes (hx growing up); Do You Dip or Chew Tobacco: No; Hx Alcohol Use: Yes (hx-quit 2 years ago) Alcohol type: beer Hx Substance Use: No Preferred Language: Bhutanese Communication Ability: Effective Visual Impairment: No Limitations Hearing Ability: Normal Immunology Teacher Required: No Beliefs That Will Affect Care: None marital status: Single Current Living Situation: Alone current occupational status: retired current occupation: retired from career in car detailing Feels Safe at Home: Yes Childhood Exposure to Second-Hand Smoke: Yes Diet: regular caffeine: Yes Dental Care, Regularly: No Physical Activity Frequency: Daily Seatbelt Use: always Sunscreen Use: No Assistive Devices: Denture - Upper, Denture - Lower and Glasses Review of Systems 2 Review of Systems: Constitutionalno fever or chills ENTno blurred vision, no double vision, no epistaxis, no sore throat Respiratoryno cough, no wheezing, no shortness of breath Cardiacno palpitations, no chest pain, no syncope Darya nausea, vomiting, diarrhea, melena, hematochezia GUno urinary retention, no urinary incontinence, no dysuria, no hematuria Musculoskeletalno joint pain, no muscle tenderness Skinno bruising, no rashes, no pruritus Neurono isolated weakness, no paresthesia, no weakness Psychno depression, no anxiety Physical Exam 2 Physical Exam: General-alert and oriented x3, no fever, no chills HEENT-head atraumatic and normocephalic, pupils equal and reactive to light, extraocular muscles intact Neck-no lymphadenopathy or thyromegaly, trachea midline Chest-clear to auscultation. No rales, wheezing or rhonchi Cardiac-regular rate and rhythm, normal S1 and S2 Abdomen-normal bowel sounds, no hepatosplenomegaly Extremities-no cyanosis, clubbing, or edema Neuro-cranial nerves II through XII intact, motor and sensory function within normal limits, strength symmetrical, no focal deficits Psych-normal affect, normal mood Results & Data Results & Data Vital Signs (Past 12 Hours) Vital Signs Pulse Resp BP Pulse Ox O2 Del Method 10/20/25 14:30 68 13 10/20/25 14:00 66 18 205/104 H 96 10/20/25 13:51 61 17 191/96 H 10/20/25 13:32 188/98 H 10/20/25 13:30 65 18 95 10/20/25 13:00 67 15 10/20/25 12:43 67 10/20/25 12:42 66 13 96 10/20/25 11:34 71 20 200/92 H 96 Room Air Laboratory Results 10/20/25 12:08 10/20/25 12:08 Code Status & VTE Plan Code Status Full code PG Care Time/CCT Total # of Minutes Spent Total Time Spent with Patient: Total time spent is greater than 50% in coordination of care (as documented) at patient's floor/unit and/or counseling patient: Coding Level of Care Code 26785 INT INP/OBS CARE 3/75MIN Diagnoses Hypertensive encephalopathy I67.4 Uncontrolled hypertension I10 Hyperlipidemia E78.5
[2025-10-20] MEDS ORDERED: ONDANSETRON INJ 2 MG/ML 2 ML VIAL IV PRN (15:21)
[2025-10-20 18:30] VITALS: RESP 18
[2025-10-20] MEDS: ACETAMINOPHEN 325 MG TAB PO PRN (20:09)
--- NOTE | 2025-10-20 21:50 | Ultrasound Report ---
Exam(s): US RENAL EXAM: US Duplex Arterial/Venous of the Kidneys, Complete CLINICAL HISTORY: Reason for exam: uncontrolled HTN. Rule out JANI. OTHER: Other Notes: Hypertension. R/O JANI. Aorta: V=78cm/s. Rt kidney: L=10.4cm. Arteries within kidney appear WNL and mostly have sharp upstrokes. MRV is patent. Elevated velocity detected within proximal RRA, 240cm/s. No other elevated velocities detected within RRA. Lt kidney: L=11.1cm. Arteries within kidney appear WNL and mostly have sharp upstrokes. MRV is patent. No elevated velocities detected within LRA. TECHNIQUE: Real-time duplex ultrasound scan of the kidneys integrating B-mode two- dimensional vascular structure, Doppler spectral analysis and color flow Doppler imaging. COMPARISON: None FINDINGS: Aorta: Unremarkable as visualized. Normal abdominal aorta. Right renal arteries: Elevated flow velocity in the proximal right renal artery measuring 239.9 cm/sec which may represent renal artery stenosis. Left renal arteries: No acute findings. No occlusion or significant stenosis on color flow and spectral Doppler imaging. Normal waveform. Renal veins: Unremarkable. The renal veins are patent bilaterally. Right kidney: Unremarkable as visualized. Right kidney measures 10.4 cm in length. No hydronephrosis or stone. Left kidney: Unremarkable as visualized. Left kidney measures 11.1 cm in length. No hydronephrosis or stone. IMPRESSION: Elevated flow velocity in the proximal right renal artery measuring 239. 9 cm/sec , concerning for renal artery stenosis. Electronically signed by: Trung Dumont M.D. 10/20/25 21:49 PM
[2025-10-21 03:02] VITALS: O2SAT 94
[2025-10-21 06:36] LABS: Hematocrit (blood only) 36.2 % (42.0-52.0); Hemoglobin 13.3 g/dL (14.0-18.0); Immature Granulocytes # (auto) 0.02 K/uL (0.01-0.20); Immature Granulocytes % (auto) 0.3 %; Mean Corpuscular Hemoglobin 33.7 pg (25.0-34.0); Mean Corpuscular Volume 91.6 fL (80.0-100.0); Platelet Count 156 K/uL (130-400); RDW Standard Deviation 45.1 fL (36.4-46.3); Red Blood Count 3.95 M/uL (4.70-6.10); White Blood Count 7.54 K/ul (4.8-10.8)
[2025-10-21 07:29] LABS: Anion Gap 8.0 (3-11); Blood Urea Nitrogen 17.0 mg/dl (6-23); Calcium 8.8 mg/dl (8.6-10.3); Carbon Dioxide 26.0 mmol/L (21-32); Chloride 108.0 mmol/L (98-107); Creatinine Clr Calc Pharmacy 75.9 ml/min; Glucose 84.0 mg/dl (70-99(Fasting)); Potassium 3.2 mmol/L (3.5-5.1); Sodium 142.0 mmol/L (136-145)
[2025-10-21 07:34] VITALS: BP 164/70; TEMP 98
--- NOTE | 2025-10-21 09:36 | Discharge Summary ---
Discharge Summary Date of Service October 21, 2025 Principal Dx & Hospital Course #1 = Principal Diagnosis (1) Hypertensive encephalopathy: Appears to have resolved. He is alert and oriented at the time of my examination today, October 21. . (2) Uncontrolled hypertension: Blood pressure is much improved, now 164/70 after olmesartan was switched to amlodipine. Continue metoprolol succinate. (3) Hyperlipidemia: Stable. Continue rosuvastatin Plan Home todayOctober 21 Admission HPI Per Admitting Provider 75-year-old white male who began exhibiting bizarre behavior today. He was seeing things and making statements that made no sense. He was brought to the ED for evaluation. His altered mental status has since resolved. He was found to have elevated blood pressure in the face of taking Toprol-XL and olmesartan. Head CT scan was negative for CVA. He had no focal neurological deficits. Head and neck CTA was also negative for critical arterial disease. It appears he has hypertensive encephalopathy associated with uncontrolled hypertension. He has been started on amlodipine and IV hydralazine will be given as needed for blood pressure control. No syncope, seizure activity, chest pain, shortness of breath. Discharge Exam General-alert and oriented x3, no fever, no chills HEENT-head atraumatic and normocephalic, pupils equal and reactive to light, extraocular muscles intact Neck-no lymphadenopathy or thyromegaly, trachea midline Chest-clear to auscultation. No rales, wheezing or rhonchi Cardiac-regular rate and rhythm, normal S1 and S2 Abdomen-normal bowel sounds, no hepatosplenomegaly Extremities-no cyanosis, clubbing, or edema Neuro-cranial nerves II through XII intact, motor and sensory function within normal limits, strength symmetrical, no focal deficits Psych-normal affect, normal mood Discharge Plan Discharge Items Patient Disposition: Home - Self-Care Reason For Visit: HYPERTENSIVE ENCEPHALOPATHY, UNCONTROLLED HTN Discharge Diagnosis: Hypertensive encephalopathy, uncontrolled hypertension Condition on Discharge: Good Activity: Resume your previous activity Non-emergency contact: Primary Care Provider Call non-emergency contact if: you have any medication questions and your symptoms worsen Follow-up/Referrals: Hailey Miranda MD [Primary Care Provider] - Diet: Regular and Heart Healthy Addtl Attending Provider Instructions: Amlodipine 5 mg once daily replaces olmesartan. A prescription has been sent to your pharmacy. Continue metoprolol. Continue all other medications. Follow-up with primary care provider soon as possible. Pending Studies at Discharge: No Stand-Alone Forms: My [facility], Smoking Cessation Medications and DC Order Prescriptions: New amlodipine 5 mg Tablet 5 mg PO QAM Qty: 30 0RF Continued pantoprazole 40 mg tablet,delayed release (DR/EC) 40 mg PO DAILY Qty: 90 3RF rosuvastatin 10 mg tablet 10 mg PO DAILY Qty: 100 3RF metoprolol succinate 25 mg tablet extended release 24 hr 12.5 mg PO DAILY 90 Days Qty: 45 2RF gabapentin 300 mg capsule 300 mg PO UD Rx Instructions: Take 2 pills (to equal 600 mg) in the morning, 2 pills (to equal 600 mg) in the after noon and 3 pills (to equal 900 mg) in the evening aspirin 81 mg Tablet,Delayed Release (Dr/Ec) 0 mg PO QAM Patient Comments: 10/20- otc unable to verify Discontinued olmesartan 20 mg tablet 20 mg PO DAILY Qty: 90 3RF Discharge Orders: Discharge Order (Routine); Ordered 10/21/25 Ordered By: Sonny Robles Admission Data Admit Date/Time: 10/20/25 14:08 Attending Provider: Sonny Robles Admit Provider: Sonny Robles Primary Care Provider: Hailey Miranda Other Providers: Sonny Robles Hospital Stay Data Consultations 10/20/25 13:54 ED Decision to Admit Stat Diagnostic Imagining Performed 10/20/25 12:00 CT angio head w con Stat CT angio neck with con Stat CT head/brain wo con Stat 10/20/25 17:47 US doppler renal [US duplex renal art/vein BI] Urgent Pending Results Patient Have Any Pending Studies at Discharge: No Discharge Instructions Given to Patient (Per Discharging Provider) Amlodipine 5 mg once daily replaces olmesartan. A prescription has been sent to your pharmacy. Continue metoprolol. Continue all other medications. Follow-up with primary care provider soon as possible. Total Time Total Time Spent Total Time Spent (In Minutes): 45 minutes. Total time included patient exam, discharge planning, medication reconciliation. Coding Level of Care Code 01548 INP/OBS DISCH >30 MIN Diagnoses Hypertensive encephalopathy I67.4 Uncontrolled hypertension I10 Hyperlipidemia E78.5
[2025-10-21] MEDS: GABAPENTIN 300 MG CAP PO SCH (09:45)
[2025-10-21] MEDS: ASPIRIN 81 MG ECTAB PO SCH (09:45)
[2025-10-21] MEDS: ROSUVASTATIN CALCIUM 10 MG TAB PO SCH (09:46)
[2025-10-21] MEDS: METOPROLOL SUCC 25MG EXT REL TAB PO SCH (09:46)
[2025-10-21] MEDS: POTASSIUM CHLORIDE CRTAB 20 MEQ TABCR PO STA (09:55)
[2025-10-21 11:44] VITALS: PULSE 67
== END 2025-10-21 12:15 | disposition home or self-care (01) ==
LOC: SUATTDRO → EDINP 11:31 → ED 11:31 → EDINP 15:21 → 2N 16:30